=== PATIENT | male | born 1955 | race Caucasian/White ===

== ENCOUNTER 2019-07-22 04:31 | Inpatient (IN) ==
[2019-07-22] MEDS ORDERED: NITROGLYCERIN SL 0.4 MG/TAB TAB ONE (04:46)
[2019-07-22] MEDS ORDERED: ASPIRIN CHEW 324 MG ONE (04:47)
[2019-07-22] MEDS ORDERED: SODIUM CHLORIDE 0.9% 1000ML 1,000 ML IV ONE (04:47)
[2019-07-22] MEDS ORDERED: ASPIRIN 81 MG CHEW PO STA (04:47)
[2019-07-22] MEDS: NITROGLYCERIN SL 0.4 MG/TAB TAB SL PRN ×3 (04:50→05:00)
[2019-07-22 05:01] LABS: Basophils # (auto) 0.02 K/uL (0-0.2); Basophils % (auto) 0.3 %; Eosinophils # (auto) 0.07 K/uL (0-0.5); Eosinophils % (auto) 0.9 %; Hematocrit (blood only) 45.2 % (42-52); Hemoglobin 15.8 g/dL (14.0-18.0); Immature Granulocytes # (auto) 0.01 K/uL (0.00-0.02); Immature Granulocytes % (auto) 0.1 %; Lymphocytes # (auto) 2.34 K/uL (1.2-3.4); Mean Corpuscular Hemoglobin 29.3 pg (25-34); Mean Corpuscular Volume 83.9 fL (80-100); Mean Platelet Volume 10.3 fL (7.4-10.4); Monocytes # (auto) 0.47 K/uL (0.11-0.59); Monocytes % (auto) 6.2 %; Neutrophils # (auto) 4.63 K/uL (1.4-6.5); Neutrophils % (auto) 61.5 %; Platelet Count 160 K/uL (130-400); RDW Coefficient of Variation 14.2 % (11.5-14.5); RDW Standard Deviation 43.9 fL (36.4-46.3); Red Blood Count 5.39 M/uL (4.7-6.1); White Blood Count 7.54 K/uL (4.8-10.8)
[2019-07-22 05:06] LABS: iSTAT Creatinine 0.7 mg/dl (0.6-1.3); iSTAT Ionized Calcium 1.36 mmol/l (1.12-1.32)
[2019-07-22] MEDS ORDERED: fentaNYL citrate 100 MCG/2 ML VIAL IV STA (05:10)
[2019-07-22] MEDS ORDERED: NiCARDipine HCL INJ 2.5 MG/ML 10 ML AMP ONE (05:12)
[2019-07-22] MEDS ORDERED: HEPARIN (PORCINE) 1000 UNIT/ML 10 ML (CATH LAB USE ONLY) ONE (05:12)
[2019-07-22 05:13] LABS: INR 1.1 (0.9-1.1); Partial Thromboplastin Time 25.9 Seconds (21.0-31.0); Prothrombin Time 10.9 Seconds (9.0-12.0)
[2019-07-22] MEDS ORDERED: MIDAZOLAM HCL 1 MG/ML 2ML VIAL ONE (05:13)
[2019-07-22] MEDS ORDERED: fentaNYL citrate 100 MCG/2 ML VIAL ONE (05:13)
[2019-07-22] MEDS ORDERED: NITROGLYCERIN/D5W 100MCG/ML 20ML SYR ONE (05:14)
[2019-07-22 05:21] LABS: Alanine Aminotransferase 29 U/L (12-78); Aspartate Aminotransferase 28 U/L (15-37); BUN Creatinine Ratio 15.5 (10-20); Bilirubin Direct < 0.1 mg/dl (0-0.2); Blood Urea Nitrogen 13 mg/dl (7-18); Carbon Dioxide 24 mmol/L (21-32); Chloride 106 mmol/L (98-107); Creatinine Clr Calc Pharmacy 91.2 ml/min; Est GFR (Non-African American) 93.2; Glucose 94 mg/dl (70-99); Lipase 239 U/L (73-393); Potassium 3.8 mmol/L (3.5-5.1); Sodium 135 mmol/L (136-145)
[2019-07-22 05:27] LABS: Alkaline Phosphatase 95 U/L (45-117); Bilirubin,Total 0.4 mg/dl (0.2-1); Total Protein 8.6 gm/dl (6.4-8.2); Troponin I < 0.015 ng/ml (0-0.045)
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
--- NOTE | 2019-07-22 06:21 | Pre Anesthesia Assessment ---
Date of Service July 22, 2019 Pre Sedation Assessment Vital Signs Temp Pulse Pulse Resp BP BP Pulse Ox 07/22/19 05:08 74 20 138/73 95 07/22/19 05:01 79 20 139/85 95 07/22/19 04:58 82 20 139/85 96 07/22/19 04:55 87 20 170/106 H 98 07/22/19 04:36 98.2 F 80 20 183/98 H 98 Cardiovascular RRR, no murmur, no edema Respiratory normal respiratory effort, lungs clear to auscultation Pre-Sedation Airway Assessment Smoking Status: Never smoker Hx Sleep Apnea: No Hx Difficult Intubation: No Short, Thick Neck: No Thyromental Distance: > or= 3.5 Finger Breadths Oral Cavity: + WNL Mallampati Class: III ASA: ASA3 Procedure Planning Contraindications for Sedation: none Current Medications Reviewed: Yes Notes The planned sedation has been discussed with the patient. Informed Consent was obtained. I have identified the patient, determined the appropriateness of sedation and have assessed the patient immediately prior to the procedure. All medicine(s) and interventions are by my order.
--- NOTE | 2019-07-22 06:21 | Post Anesthesia Assessment ---
Date of Service July 22, 2019 Post Sedation Assessment Vital Signs Temp Pulse Pulse Resp BP BP Pulse Ox 07/22/19 05:08 74 20 138/73 95 07/22/19 05:01 79 20 139/85 95 07/22/19 04:58 82 20 139/85 96 07/22/19 04:55 87 20 170/106 H 98 07/22/19 04:36 98.2 F 80 20 183/98 H 98 Recovery Score Activity: Moves 4 extremities Respiration: Deep Breath/Cough Circulation: +/-20% PreAnes Value Consciousness: Fully Awake Oxygen Saturation: O2 needed for >90% Discharge Sedation Level of Care: Fast Track Phase II Post Sedation Plan On clinical assessment, the patient appears to have tolerated the sedation without complications. Patient is recovering as anticipated. Patient will continue to be monitored by nursing and may be discharged when sedation discharge criteria are met per below protocol. Upon Completions of procedure and additional 15 minutes continue every 5 minute vital signs and the P.A.R. score; then discharge to a Phase I or Fast Track to Phase II per the following guidelines: * Discharge Patient to appropriate Phase II area if PAR is 8 or greater or return to pre- procedure baseline. The post - procedure orders will be as directed. * If PAR score is less than 8 or not return to pre-procedure baseline then patient will follow Phase I monitoring till PAR is reached for Phase II. The Phase I may be done in procedure room or may call to secure a Phase I area. * If naloxone or flumazenil are used for reversal, hold in Phase I for continued monitoring from when last reversal dose was given for a minimum of 60 minutes or longer pending the nurse and/or physician discretion of patient condition before discharge to Phase II. Please call the Sedation Physician to re-evaluate and complete post-note for discharge to Phase II area. Do NOT discharge from procedure sedation or Phase 1 until post- sedation evaluation note is complete by procedure /sedation MD Sedation Discharge Instructions to be given to the patient at discharge to home.
[2019-07-22] MEDS ORDERED: ONDANSETRON INJ 2 MG/ML 2 ML VIAL IV PRN (06:23)
[2019-07-22] MEDS ORDERED: Heparin IV Low Dose *NO* Bolus IV ONE (06:23)
--- NOTE | 2019-07-22 06:23 | XRay Report ---
XR chest 1V portable CLINICAL HISTORY: CP dyspnea COMPARISON STUDY: No previous studies for comparison. FINDINGS: The bones soft tissues and hemidiaphragms are normal. The cardiomediastinal silhouette is n ormal. The lungs are clear. The pulmonary vasculature is normal. IMPRESSION: Negative chest. The above report was generated using voice recognition software. It may contain grammatical, syntax or spelling errors. Electronically signed by: Kirk Mo M.D. 07/22/2019 6:21 AM
--- NOTE | 2019-07-22 06:23 | Post Operative Brief Note ---
Cardiology Brief Post Op Date of Surgery July 22, 2019 Pre & Post Diagnosis Operation Date: 07/22/19 05:05 <No data on this case meets the specified criteria> Procedure -- Wool Fleece Grader Manuel Loera MD Urology Nurse [facility] Estimated Blood Loss 10 Findings Consistent with Post-Op Diagnosis Multivessel CAD 70-80% ostial/proximal LAD disease 95% ostial OM2 70% PDA Recommend evaluation for CABG. Complications none
[2019-07-22] MEDS ORDERED: HEPARIN 25000 UNIT/500 ML D5W IV ONE (06:45)
[2019-07-22] MEDS: HEPARIN SODIUM/DEXTROSE 25,000 UNITS/500 ML BAG IV SCH (07:32)
[2019-07-22] MEDS: SODIUM CHLORIDE 0.9% 1000ML 1,000 ML IV SCH ×3 (07:37→23:57)
--- NOTE | 2019-07-22 09:26 | Cardiac Catheterization ---
[facility] Data: Principal Clerk Cardiac Status Clinical evaluation leading to the procedure CAD Presenation: Non STEMI Anginal Classification: CCS IV Heart Failure: No Cardiogenic Shock within 24 Hours: No Cardiac Arrest within 24 Hours: No Imaging Studies Past 6 Months: No Stress Studies Past 6 Months: No Diagnostic Physicians Name: Manuel Loera MD Status: Urgent Closure Device Percutaneous Entry Location: Radial Closure Device: Radial Band Recommendations: CABG Intraprocedure Events Significant Disection: No Perforation: No Cardiac Cath Procedure Full Procedure Date July 22, 2019 Pre-Procedure Diagnosis Pre-Procedure Diagnosis: Acute Coronary Syndrome AUC Score AUC Score: 8 Post-Procedure Diagnosis Post-Procedure Diagnosis: Severe CAD and Normal Intracardiac Pressures Procedure(s) Performed Procedure(s) Performed: Coronary Angiography, Left Heart Cath and IVUS Word Processing Specialist Manuel Loera MD Rejogger(s) Monisha Estimated Blood Loss Estimated Blood Loss: 15 Medication(s) Medication(s): Fentanyl, Heparin, Lidocaine 1%, Nicardipine, Nitroglycerin and Versed Summary of Findings Indication: ACS Access: 6 Fr right radial artery Catheters: Brandon, pigtail, EBU 3.5 Findings: LM -Short vessel, 20% distal LAD -70-80% ostial stenosis, 30% proximal to mid disease extending across across first septal. Remainder of mid/distal vessel without significant disease as w raps around apex. Circumflex -moderate caliber, proximal luminal irregularities, OM 2 with 95% ostial stenosis (likely culprit). Distal circumflex with 50% stenosis prior to left PLB RCA -dominant, moderate caliber, diffuse 30 to 40% latemid to distal RCA. 70% proximal right PDA. LVEDP - 16 LVEF -- 55-60% IVUS assessment of ostial LAD -LM cannulated with EBU 3.5 guide -BMW wire placed in circumflex, Whisper wire placed into distal LAD -IVUS pullback from mid LAD across left main. Severe, mildly calcified plaque extending across take-off diagonal back to LAD ostium. Arterial Closure: TR Band Summary: 1. Severe multivessel coronary artery disease - 70-80% ostial LAD - 95% proximal OM2 (likely acute culprit) - 70% proximal R-PDA 2. Normal intracardiac filling pressure Recommendations: With 3 vessel disease including involvement of ostial LAD recommend consideration of CABG. Recommendations Recommendations: CABG Specimens Specimens: None Anesthesia moderate Procedural Complication(s) None Disposition PCU I attest to the content of the Intraoperative Record and any orders documented therein. Any exceptions are noted below.
[2019-07-22] MEDS: ATORVASTATIN 40 MG TAB PO SCH (10:50)
[2019-07-22] MEDS: METOPROLOL TARTRATE 25 MG TAB PO SCH ×2 (10:51→20:38)
[2019-07-22 14:23] LABS: Partial Thromboplastin Time 54.2 Seconds (21.0-31.0)
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
[2019-07-22] MEDS: ACETAMINOPHEN 325 MG TAB PO PRN (22:33)
[2019-07-23 06:19] LABS: Basophils # (auto) 0.02 K/uL (0-0.2); Basophils % (auto) 0.4 %; Eosinophils # (auto) 0.15 K/uL (0-0.5); Eosinophils % (auto) 2.9 %; Hematocrit (blood only) 43.8 % (42-52); Hemoglobin 14.6 g/dL (14.0-18.0); Immature Granulocytes # (auto) 0.01 K/uL (0.00-0.02); Immature Granulocytes % (auto) 0.2 %; Lymphocytes # (auto) 2.26 K/uL (1.2-3.4); Lymphocytes % (auto) 43.2 %; Mean Corpuscular Hemoglobin 28.2 pg (25-34); Mean Corpuscular Hgb Conc 33.3 g/dL (32-36); Mean Corpuscular Volume 84.7 fL (80-100); Mean Platelet Volume 10.4 fL (7.4-10.4); Monocytes # (auto) 0.33 K/uL (0.11-0.59); Monocytes % (auto) 6.3 %; Neutrophils # (auto) 2.46 K/uL (1.4-6.5); Platelet Count 124 K/uL (130-400); RDW Coefficient of Variation 14.1 % (11.5-14.5); RDW Standard Deviation 43.7 fL (36.4-46.3); Red Blood Count 5.17 M/uL (4.7-6.1); White Blood Count 5.23 K/uL (4.8-10.8)
[2019-07-23 06:42] LABS: Estimated Average Glucose 111 mg/dl; Hemoglobin A1C 5.5 % (4.5-5.6)
[2019-07-23 06:46] LABS: Partial Thromboplastin Ratio 1.7
[2019-07-23 06:58] LABS: BUN Creatinine Ratio 14.9 (10-20); Creatinine Clr Calc Pharmacy 97.5 ml/min; Est GFR (African American) 113.2; Est GFR (Non-African American) 97.6; Potassium 3.7 mmol/L (3.5-5.1)
[2019-07-23 07:00] LABS: Partial Thromboplastin Time 46.4 Seconds (21.0-31.0)
[2019-07-23 07:07] LABS: Troponin I 0.127 ng/ml (0-0.045)
[2019-07-23] MEDS: ASPIRIN 81 MG ECTAB PO SCH (08:03)
[2019-07-23] MEDS: METOPROLOL TARTRATE 25 MG TAB PO SCH ×2 (08:03→20:25)
[2019-07-23] MEDS: ATORVASTATIN 40 MG TAB PO SCH (08:03)
[2019-07-23] MEDS: SODIUM CHLORIDE 0.9% 1000ML 1,000 ML IV SCH (10:09)
[2019-07-23] MEDS: HEPARIN SODIUM/DEXTROSE 25,000 UNITS/500 ML BAG IV SCH (11:19)
[2019-07-23] MEDS ORDERED: NiCARDipine HCL INJ 2.5 MG/ML 10 ML AMP ONE (15:10)
[2019-07-23] MEDS ORDERED: HEPARIN (PORCINE) 1000 UNIT/ML 10 ML (CATH LAB USE ONLY) ONE (15:10)
[2019-07-23] MEDS ORDERED: MIDAZOLAM HCL 1 MG/ML 2ML VIAL ONE (15:11)
[2019-07-23] MEDS ORDERED: NITROGLYCERIN/D5W 100MCG/ML 20ML SYR ONE (15:11)
[2019-07-23] MEDS ORDERED: fentaNYL citrate 100 MCG/2 ML VIAL ONE (15:11)
--- NOTE | 2019-07-23 16:54 | Cardiology Progress Note ---
Date of Service July 23, 2019 Assessment & Plan (1) Acute coronary syndrome: 2. Multivessel coronary artery disease 3. Preserved LV function 4. History of hepatitis C. We reviewed images today. Long discussion with patient and his son by phone. Feel LAD and OM 2 both amenable to PCI and that long-term risk benefits of bypass surgery are comparable. After discussions patient would like to proceed with PCI and will plan to schedule for tomorrow morning. We will discontinue heparin infusion Load with clopidogrel 600 mg today Continue aspirin, beta-patricia, statin. --Start lisinopril N.p.o. past midnight. Subjective Feeling well today. No recurrent chest pain. No shortness of breath. Urinary concerns have resolved. One brief episode of nausea resolved. Review of Systems Review of Systems: All systems reviewed & are unremarkable except as noted in HPI & below Physical Exam Physical Exam: General: Comfortable, no acute distress HEENT: Sclerae anicteric, mucous membranes moist Lungs: Clear to auscultation bilaterally, no rhonchi or wheezes Cardiac: Regular rate and rhythm, no murmurs. Abdomen: Soft, nontender, nondistended, positive bowel sounds. Extremities: Warm, well perfused, no edema. Right radial artery access site with mild ecchymosis, no hematoma. Distal pulse and sensation intact. Skin: No rashes or lesions. Neuro: Nonfocal Psych: Alert orient x3, normal affect and mood Results & Data Vital Signs (Past 12 Hours) Vital Signs Temp Pulse Pulse Resp BP BP Pulse Ox 07/23/19 16:46 97.7 F 61 19 157/68 H 97 07/23/19 15:36 65 07/23/19 11:38 98.1 F 66 24 144/88 H 95 07/23/19 08:03 97.7 F 67 18 126/67 95 07/23/19 08:00 62 PG Care Time/CCT Total # of Minutes Spent Total Time Spent with Patient: Total time spent is greater than 50% in coordination of care (as documented) at patient's floor/unit and/or counseling patient:
[2019-07-23] MEDS ORDERED: CLOPIDOGREL BISULFATE 300 MG TAB PO STA (17:04)
[2019-07-23] MEDS: lisinopriL 5 MG TAB PO SCH (17:38)
[2019-07-24 06:50] LABS: Partial Thromboplastin Time 26.5 Seconds (21.0-31.0)
[2019-07-24] MEDS: ATORVASTATIN 40 MG TAB PO SCH (07:47)
[2019-07-24] MEDS: METOPROLOL TARTRATE 25 MG TAB PO SCH ×2 (07:48→21:18)
[2019-07-24] MEDS: lisinopriL 5 MG TAB PO SCH (07:48)
[2019-07-24] MEDS: ASPIRIN 81 MG ECTAB PO SCH (07:48)
[2019-07-24] MEDS: CLOPIDOGREL BISULFATE 75 MG TAB PO SCH (07:49)
[2019-07-24] MEDS ORDERED: fentaNYL citrate 100 MCG/2 ML VIAL ONE ×2 (09:23→10:07)
[2019-07-24] MEDS ORDERED: NiCARDipine HCL INJ 2.5 MG/ML 10 ML AMP ONE (09:23)
[2019-07-24] MEDS ORDERED: HEPARIN (PORCINE) 1000 UNIT/ML 10 ML (CATH LAB USE ONLY) ONE (09:23)
[2019-07-24] MEDS ORDERED: MIDAZOLAM HCL 1 MG/ML 2ML VIAL ONE ×2 (09:24→10:07)
[2019-07-24] MEDS ORDERED: NITROGLYCERIN/D5W 100MCG/ML 20ML SYR ONE (09:24)
--- NOTE | 2019-07-24 11:17 | Pre Anesthesia Assessment ---
Date of Service July 24, 2019 Pre Sedation Assessment Vital Signs Temp Pulse Pulse Resp BP BP Pulse Ox 07/24/19 08:00 58 L 07/24/19 07:19 98.1 F 63 21 135/79 96 07/24/19 04:25 97.9 F 57 L 20 144/72 H 97 07/23/19 23:48 97.7 F 55 L 20 144/79 H 98 07/23/19 19:36 97.9 F 68 21 128/75 97 07/23/19 16:46 97.7 F 61 19 157/68 H 97 07/23/19 15:36 65 07/23/19 11:38 98.1 F 66 24 144/88 H 95 Cardiovascular RRR, no murmur, no edema Respiratory normal respiratory effort, lungs clear to auscultation Pre-Sedation Airway Assessment Smoking Status: Never smoker Hx Sleep Apnea: No Hx Difficult Intubation: No Short, Thick Neck: No Thyromental Distance: > or= 3.5 Finger Breadths Oral Cavity: + WNL Mallampati Class: III ASA: ASA4 Procedure Planning Contraindications for Sedation: none Current Medications Reviewed: Yes Notes The planned sedation has been discussed with the patient. Informed Consent was obtained. I have identified the patient, determined the appropriateness of se dation and have assessed the patient immediately prior to the procedure. All medicine(s) and interventions are by my order.
--- NOTE | 2019-07-24 11:17 | Post Anesthesia Assessment ---
Date of Service July 24, 2019 Post Sedation Assessment Vital Signs Temp Pulse Pulse Resp BP BP Pulse Ox 07/24/19 08:00 58 L 07/24/19 07:19 98.1 F 63 21 135/79 96 07/24/19 04:25 97.9 F 57 L 20 144/72 H 97 07/23/19 23:48 97.7 F 55 L 20 144/79 H 98 07/23/19 19:36 97.9 F 68 21 128/75 97 07/23/19 16:46 97.7 F 61 19 157/68 H 97 07/23/19 15:36 65 07/23/19 11:38 98.1 F 66 24 144/88 H 95 Recovery Score Activity: Moves 4 extremities Respiration: Deep Breath/Cough Circulation: +/-20% PreAnes Value Consciousness: Fully Awake Oxygen Saturation: O2 needed for >90% Discharge Sedation Level of Care: Fast Track Phase II Post Sedation Plan On clinical assessment, the patient appears to have tolerated the sedation without complications. Patient is recovering as anticipated. Patient will continue to be monitored by nursing and may be discharged when sedation discharge criteria are met per below protocol. Upon Completions of procedure and additional 15 minutes continue every 5 minute vital signs and the P.A.R. score; then discharge to a Phase I or Fast Track to Phase II per the following guidelines: * Discharge Patient to appropriate Phase II area if PAR is 8 or greater or return to pre- procedure baseline. The post - procedure orders will be as directed. * If PAR score is less than 8 or not return to pre-procedure baseline then patie nt will follow Phase I monitoring till PAR is reached for Phase II. The Phase I may be done in procedure room or may call to secure a Phase I area. * If naloxone or flumazenil are used for reversal, hold in Phase I for continued monitoring from when last reversal dose was given for a minimum of 60 minutes or longer pending the nurse and/or physician discretion of patient condition before discharge to Phase II. Please call the Sedation Physician to re-evaluate and complete post-note for discharge to Phase II area. Do NOT discharge from procedure sedation or Phase 1 until post- sedation ev aluation note is complete by procedure /sedation MD Sedation Discharge Instructions to be given to the patient at discharge to home.
[2019-07-24] MEDS ORDERED: SODIUM CHLORIDE 0.9% 1000ML 1,000 ML IV SCH (11:30)
--- NOTE | 2019-07-24 11:30 | Cardiac Catheterization ---
ACC Data: Retirement Manager Cardiac Status Clinical evaluation leading to the procedure CAD Presenation: Non STEMI Anginal Classification: CCS IV Heart Failure: No Cardiogenic Shock within 24 Hours: No Cardiac Arrest within 24 Hours: No Imaging Studies Past 6 Months: Yes Stress Studies Past 6 Months: No Diagnostic Physicians Name: Manuel Loera MD Status: Elective Closure Device Percutaneous Entry Location: Radial Closure Device: Radial Band Recommendations: PCI without planned CABG PCI Indication: PCI for high risk Non-ASHER Lesion Segment Name: ostial LAD Culprit Artery: No Stenosis Prior to Rx (%): 80 Chronic Total Occlusion: No IVUS: No FFR: No Pre-Procedure NII Flow: 3 Previously Treated Lesion: No Lesion Complexity: High/C Lesion Length (mm): 23 Thrombus Present: No Bifurcation Lesion: Yes Guidewire Across Lesion: Stenosis Post-Procedure (%): 0 Post-Procedure NII Flow: 3 Devices(s) Deployed: Yes Yes Lesion #2 Segment Name: OM2 Culprit Artery: Yes Stenosis Prior to Rx (%): 95 Chronic Total Occlusion: No IVUS: No FFR: No Pre-Procedure NII Flow: 3 Previously Treated Lesion: No Lesion Complexity: Non-High/Non-C Lesion Length (mm): 15 Thrombus Present: Yes Bifurcation Lesion: Yes Guidewire Across Lesion: Yes Stenosis Post-Procedure (%): 0 Post-Procedure NII Flow: 3 Devices(s) Deployed: Yes Intraprocedure Events Significant Disection: No Perforation: No Cardiac Cath Procedure Full Procedure Date July 24, 2019 Pre-Procedure Diagnosis Pre-Procedure Diagnosis: Non STEMI AUC Score AUC Score: 8 Post-Procedure Diagnosis Post-Procedure Diagnosis: Severe CAD and Successful PCI Procedure(s) Performed Procedure(s) Performed: Left Heart Cath, PTCA and Drug Eluting Stent Gynaecological Oncologist Manuel Loera MD Blow Torch Burner(s) Yaquelin Estimated Blood Loss Estimated Blood Loss: 15 Medication(s) Medication(s): Clopidogrel, Fentanyl, Heparin, Lidocaine 1%, Nicardipine, Nitroglycerin and Versed Summary of Findings Indication: NSTEMI, multivessel disease Underwent cardiac catheterization in the setting of acute chest pain 2 days ago. He was found to have multivessel disease including ostial LAD involvement. Procedure stopped at that time for discussion regarding revascularization options for multivessel disease. Patient ultimately decided to pursue PCI with multivessel stenting. Access: 6 Fr right radial artery Catheters: EBU 3.5 guide Findings: For full details of patient's coronary angiography please cath report dictated on 07/22/2019. PCI of OM 2 Left main cannulated with EBU 3.5 guide Supervisor Remelt 50 wire placed into distal OM 2 Ostial OM 2 dilated with 2.0 balloon Ostial/proximal OM 2 stented with 2.5 x 18 mm Xience drug-eluting stent Stent postdilated with 2.5 NC Post procedure NII-3 flow in OM 2, stent well-expanded. Mild to moderate residuals stenosis in mid circumflex after takeoff of stent. PCI of ostial LAD BMW wire placed into distal LAD Pro-water placed into first diagonal Proximal LAD dilated with 2.5 compliant balloon Prior IVUS assessment during last catheterization showed disease extending from ostium to mid segment across first diagonal 3.0 x 28 mm Xience Hilaria drug-eluting stent placed from LAD ostium to mid segment Diagonal rewired with river pilot 50 wire LAD stent postdilated with 3.75 NC Ostium of first diagonal/stent struts dilated with 2.0 balloon Post procedure stent well-expanded, NII-3 flow in LAD and first diagonal. No apparent coronary complications. Arterial Closure: TR Band Summary: 1. Successful PCI of ostial LAD with single drug-eluting stent (3.0 x 28 Xience Hilaria; postdilated with 3.75 NC). Successful PTCA of ostium of first diagonal through stent struts with 2.0 balloon 2. Successful PCI of proximal OM 2 with single drug-eluting stent (2.5 x 18 Xience Hilaria). Recommendations: Return to PCU for continued monitoring Loaded with clopidogrel yesterday. Continue DAPT with aspirin, clopidogrel for at least one year Continue statin and ASCVD risk factor modification Refer to cardiac rehab No plans for intervention to RCA disease or distal circumflex disease unless additional symptoms in the future. Hemodynamics Rest Ao:: 97/61/76 Final Ao: 110/59/92 LV: -- Recommendations Recommendations: PCI without planned CABG Radiation Exposure (mGy) 3298 Contrast (mls) 150 opti Fluids (cc crystalloids) Fluids (cc crystalloids): 165 Drains Drains: none Anesthesia moderate Procedural Complication(s) None Disposition PCU I attest to the content of the Intraoperative Record and any orders documented therein. Any exceptions are noted below.
[2019-07-24] MEDS: ACETAMINOPHEN 325 MG TAB PO PRN (14:33)
[2019-07-25] MEDS: ACETAMINOPHEN 325 MG TAB PO PRN ×2 (03:33→08:00)
[2019-07-25 06:45] LABS: Basophils # (auto) 0.02 K/uL (0-0.2); Basophils % (auto) 0.2 %; Eosinophils # (auto) 0.19 K/uL (0-0.5); Eosinophils % (auto) 2.4 %; Hematocrit (blood only) 43.1 % (42-52); Immature Granulocytes # (auto) 0.01 K/uL (0.00-0.02); Immature Granulocytes % (auto) 0.1 %; Lymphocytes # (auto) 2.41 K/uL (1.2-3.4); Lymphocytes % (auto) 29.8 %; Mean Corpuscular Hgb Conc 34.8 g/dL (32-36); Mean Corpuscular Volume 83.2 fL (80-100); Mean Platelet Volume 10.7 fL (7.4-10.4); Monocytes # (auto) 0.57 K/uL (0.11-0.59); Monocytes % (auto) 7.1 %; Neutrophils # (auto) 4.88 K/uL (1.4-6.5); Neutrophils % (auto) 60.4 %; Platelet Count 157 K/uL (130-400); RDW Coefficient of Variation 14.5 % (11.5-14.5); RDW Standard Deviation 44.4 fL (36.4-46.3); Red Blood Count 5.18 M/uL (4.7-6.1); White Blood Count 8.08 K/uL (4.8-10.8)
[2019-07-25] MEDS: CLOPIDOGREL BISULFATE 75 MG TAB PO SCH (08:01)
[2019-07-25] MEDS: lisinopriL 5 MG TAB PO SCH (08:01)
[2019-07-25] MEDS: ATORVASTATIN 40 MG TAB PO SCH (08:01)
[2019-07-25] MEDS: ASPIRIN 81 MG ECTAB PO SCH (08:01)
[2019-07-25] MEDS: METOPROLOL TARTRATE 25 MG TAB PO SCH (08:01)
--- NOTE | 2019-07-25 09:11 | Discharge Summary ---
Date of Service July 25, 2019 Admission HPI Per Admitting Provider Patient is a 64-year-old man with a history of hepatitis C who presented to [facility] ED with acute onset chest pain. Pain began approximately 3 hours prior to arrival. No prior similar symptoms. No associated shortness of breath or nausea. Pain did radiate to back. ED EKG showed sinus rhythm with a right bundle branch block. Computer interpretation suggested inferolateral STEMI and heart alert was activated. Patient was largely chest pain-free after sublingual nitroglycerin when seen by me in the ED. Decision was made to proceed with cardiac catheterization. He was found to have multivessel disease including a 70 to 80% ostial LAD, 70% proximal PDA and 95% proximal OM 2 lesion which was thought to be the likely acute culprit vessel. Patient had NII-3 flow throughout and was chest pain-free in the setting of three-vessel disease with ostial LAD involvement decision made to defer intervention and discussed options for revascularization. Past medical history: Hepatitis C. Medications: None Social history: Originally from [place], non-yakut speaking, speaks Svitlana, son present and translating for patient today. Works at a [employer]. Denies tobacco or heavy alcohol. Family history: Denies premature CAD Allergies: None Specialty Data Cardiology Echo 07/2019: Borderline LVH, EF 60 to 65%, no regional wall motion abno rmalities, aortic sclerosis PCI 07/24/2019: 1. Successful PCI of ostial LAD with single drug-eluting stent (3.0 x 28 Xience Hilaria; postdilated with 3.75 NC). Successful PTCA of ostium of first diagonal through stent struts with 2.0 balloon 2. Successful PCI of proximal OM 2 with single drug-eluting stent (2.5 x 18 Xience Hilaria). Discharge Data Consultations 07/22/19 05:22 ED Decision to Admit Stat 07/24/19 11:32 Consult Cardiac Rehabilitation Routine Procedures Performed Operation Date: 07/22/19 05:05 Actual Procedures p Cath, Left with Cors and Vent - Kyle Loera MD s Cineradiography w/Routine Exam - Kyle Loera MD s IVUS Coronary Single Vessel - Kyle Loera MD Operation Date: 07/23/19 14:55 <No data on this case meets the specified criteria> Operation Date: 07/24/19 12:00 Actual Procedures p Drug Eluting Stent SGl Vessel - Kyle Loera MD s Drug Eluting Stent each ADDTL Vessel - Kyle Loera MD s Cineradiography w/Routine Exam - Kyle Loera MD s POBA SGL Vessel - Kyle Loera MD Hospital Course (1) Acute coronary syndrome: 2. Multivessel coronary artery disease 3. Preserved LV function 4. History of hepatitis C. Patient remained largely chest pain-free throughout the remainder of his hospitalization. Troponin peaked at 0.151. Echo cardiogram showed preserved LV function with no regional wall motion and normalities. Long discussion was had regarding revascularization options. In the end we decided to proceed with multivessel PCI. On 07/24 underwent stenting of ostial LAD and ostial OM 2. Procedure uncomplicated. On day of discharge patient was feeling well and chest pain-free. No access site complications. Post procedure follow-up labs unchanged. Discharged home on DAPT with aspirin, clopidogrel. Follow-up with cardiology in 2 to 3 weeks. Discharge Instructions Home Medications aspirin [Ecotrin Low Strength] 81 mg PO QAM 30 Days #30 tab 07/25/19 [Rx] atorvastatin 80 mg PO QAM 30 Days #30 tab 07/25/19 [Rx] clopidogrel 75 mg PO QAM 30 Days #30 tab 07/25/19 [Rx] lisinopril [Zestril] 5 mg PO QAM 30 Days #30 tab 07/25/19 [Rx] metoprolol tartrate 25 mg PO DAILY 30 Days #30 tab 07/25/19 [Rx]
== END 2019-07-25 13:02 | disposition home or self-care (01) | DRG 247 ==
LOC: ED 04:31 → 2E 06:25

== ENCOUNTER 2019-09-21 18:26 | Inpatient (IN) ==
[2019-09-21] MEDS ORDERED: ONDANSETRON INJ 2 MG/ML 2 ML VIAL IV STA (18:46)
[2019-09-21] MEDS ORDERED: MoRPHine SULFATE 4 MG/ML 1 ML CARP\\VIAL IV STA (18:46)
[2019-09-21] MEDS ORDERED: SODIUM CHLORIDE 0.9% 1000ML 1,000 ML IV SCH (19:00)
[2019-09-21 19:08] LABS: Basophils # (auto) 0.01 K/uL (0-0.2); Basophils % (auto) 0.1 %; Eosinophils # (auto) 0.08 K/uL (0-0.5); Eosinophils % (auto) 0.9 %; Hematocrit (blood only) 45.9 % (42-52); Hemoglobin 15.5 g/dL (14.0-18.0); Immature Granulocytes # (auto) 0.01 K/uL (0.00-0.02); Immature Granulocytes % (auto) 0.1 %; Lymphocytes # (auto) 1.12 K/uL (1.2-3.4); Mean Corpuscular Hemoglobin 28.8 pg (25-34); Mean Corpuscular Hgb Conc 33.8 g/dL (32-36); Mean Corpuscular Volume 85.3 fL (80-100); Mean Platelet Volume 10.5 fL (7.4-10.4); Monocytes # (auto) 0.46 K/uL (0.11-0.59); Monocytes % (auto) 4.9 %; Neutrophils # (auto) 7.63 K/uL (1.4-6.5); Platelet Count 158 K/uL (130-400); RDW Coefficient of Variation 14.1 % (11.5-14.5); RDW Standard Deviation 43.5 fL (36.4-46.3); Red Blood Count 5.38 M/uL (4.7-6.1); White Blood Count 9.31 K/uL (4.8-10.8)
[2019-09-21 19:17] LABS: iSTAT Creatinine 0.7 mg/dl (0.6-1.3); iSTAT Hemoglobin 16.3 g/dl (14.0-18.0); iSTAT Ionized Calcium 1.27 mmol/l (1.12-1.32); iSTAT Potassium 4.8 mEq/L (3.3-5.0)
[2019-09-21 19:25] LABS: Alanine Aminotransferase 42 U/L (12-78); Albumin Level 3.7 gm/dl (3.4-5.0); Aspartate Aminotransferase 33 U/L (15-37); BUN Creatinine Ratio 15.1 (10-20); Blood Urea Nitrogen 14 mg/dl (7-18); Calcium 10.2 mg/dl (8.5-10.1); Carbon Dioxide 25 mmol/L (21-32); Chloride 101 mmol/L (98-107); Est GFR (African American) 103.6; Est GFR (Non-African American) 89.4; Glucose 151 mg/dl (70-99); Lipase 307 U/L (73-393); Potassium 4.8 mmol/L (3.5-5.1); Sodium 131 mmol/L (136-145)
[2019-09-21 19:29] LABS: Albumin Globulin Ratio 0.8 (0.9-2); Alkaline Phosphatase 126 U/L (45-117); Bilirubin,Total 0.4 mg/dl (0.2-1); Globulin 4.5 gm/dl (2.5-4.0); Total Protein 8.2 gm/dl (6.4-8.2); Troponin I < 0.015 ng/ml (0-0.045)
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
[2019-09-21] MEDS ORDERED: IOVERSOL 100ml IV PRN (19:33)
--- NOTE | 2019-09-21 19:51 | CT Scan Report ---
CT OF THE ABDOMEN AND PELVIS WITH CONTRAST CLINICAL HISTORY: Lower abdominal pain. COMPARISON STUDY: None. TECHNIQUE: Following IV administration of 93 mL of Optiray-320, axial images of the abdomen and pelvi s were obtained from the lung bases to the proximal femurs. Images were reviewed in the axial, sagitt al, and coronal planes. IV contrast was administered without complication. Automated exposure contro l was utilized for the study. A dose lowering technique was utilized adhering to the principles of A MARLENE. CT DOSE: 422.43 mGy.cm FINDINGS: There is extensive coronary artery calcification. Heart is mildly enlarged. The liver, sple en, adrenal glands, kidneys and pancreas are unremarkable. There is no biliary or pancreatic ductal d ilatation. There is no peripancreatic or pericholecystic infiltration. No hydronephrosis is present. Major vasculature is patent. There is no evidence for a bowel obstruction. The appendix is mildly dil ated, measuring 9 mm in caliber. The appendix is fluid-filled. Minimal adjacent infiltration is noted . There is no free air or abscess. There is edema versus wall thickening of the medial base of the ce cum. No ascites is present. No lymphadenopathy is present. No suspicious osseous lesions are noted. S [place] fat-containing umbilical hernia is present. IMPRESSION: Mildly dilated fluid-filled appendix with minimal adjacent infiltration. The findings rizvi ggest acute appendicitis. Wall thickening of the medial base of the cecum may be secondary to acute a ppendicitis. An underlying mucosal lesion with obstruction of the appendix could appear similar. Surg ical consultation is recommended. ACT 112: Negative or not required by law. Electronically signed by: Saturnino Patterson M.D. 09/21/2019 7:50 PM
[2019-09-21 20:30] LABS: Appearance Urine Cloudy (Clear); Bacteria Urine Automated Negative (Negative); Bilirubin Urine Negative (Negative); Blood Urine Negative (Negative); Color Urine Yellow; Glucose Urine UA Negative (Negative); Ketones Urine Negative (Negative); Leukocyte Esterase Urine Negative (Negative); Nitrite Urine Negative (Negative); Protein Urine Negative (Negative); RBC Urine Automated 0-4 /hpf (0-4); Specific Gravity Urine 1.023 (1.000-1.030); Urobilinogen Urine Negative (Negative)
[2019-09-21] MEDS ORDERED: cefOXitin 2,000 MG/60 ML BAG IV STA (20:59)
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
[2019-09-21] MEDS ORDERED: BUPIVACAINE/EPINEPHRINE 0.5% MPF 1:200,000 10 ML VIAL ONE (21:36)
[2019-09-21] MEDS ORDERED: ePHEDrine sulfate 50 MG/ML AMP IV PRN (21:37)
[2019-09-21] MEDS ORDERED: PROMETHAZINE HCL 6.25 MG in SODIUM CHLORIDE 0.9% 50 ML IV PRN (21:37)
[2019-09-21] MEDS ORDERED: ATROPINE SULFATE 0.1 MG/ML 10ML SYR IV PRN (21:37)
[2019-09-21] MEDS ORDERED: ONDANSETRON INJ 2 MG/ML 2 ML VIAL IV PRN ×2 (21:37→22:37)
[2019-09-21] MEDS ORDERED: fentaNYL citrate 100 MCG/2 ML VIAL IV PRN (21:37)
[2019-09-21] MEDS ORDERED: fentaNYL citrate 100 MCG/2 ML VIAL ONE (21:43)
[2019-09-21] MEDS ORDERED: SUCCINYLCHOLINE CHLORIDE 20 MG/ML 10 ML VIAL ONE (22:13)
[2019-09-21] MEDS ORDERED: PROPOFOL IV EMULSION 10 MG/ML 20 ML VIAL IV ONE (22:13)
[2019-09-21] MEDS ORDERED: LIDOCAINE HCL 2% 2 ML VIAL/AMP(20MG/ML) INFIL ONE (22:13)
[2019-09-21] MEDS ORDERED: DEXAMETHASONE SOD INJ 4 MG/ML VIAL ONE (22:13)
[2019-09-21] MEDS ORDERED: NEOSTIGMINE METHYLSULFATE 5 MG/5 ML SYR ONE (22:13)
[2019-09-21] MEDS ORDERED: ROCURONIUM BROMIDE 10 MG/ML 5 ML VIAL ONE (22:13)
[2019-09-21] MEDS ORDERED: ONDANSETRON INJ 2 MG/ML 2 ML VIAL ONE (22:13)
[2019-09-21] MEDS ORDERED: GLYCOPYRROLATE 0.2 MG/ML VIAL ONE (22:13)
--- NOTE | 2019-09-21 22:26 | Post Operative Brief Note ---
Immediate Post Op Note v1 Date of Surgery September 21, 2019 Pre & Post Diagnosis Operation Date: 09/21/19 21:45 Pre-Op Diagnosis: Appendicitis, acute Post-Op Diagnosis: Appendicitis, acute I identified the patient and participated in the time-out.: Yes Procedure Operation Date: 09/21/19 21:45 Actual Procedures p Laparoscopic Appendectomy(Not Applicable) - Natan Johnson MD Surgeon Natan Johnson MD Confidential Secretary none Estimated Blood Loss 10 Findings Consistent with Post-Op Diagnosis
[2019-09-21] MEDS ORDERED: ESMOLOL HCL INJ 10 MG/ML 10ML VIAL IV ONE (22:32)
[2019-09-21] MEDS ORDERED: SUGAMMADEX SODIUM 200 MG/2 ML VIAL IV ONE (22:34)
[2019-09-21] MEDS ORDERED: ACETAMINOPHEN 325 MG TAB PO PRN (22:37)
[2019-09-21] MEDS ORDERED: PROMETHAZINE HCL 25 MG in SODIUM CHLORIDE 0.9% 50 ML IV PRN (22:37)
[2019-09-21] MEDS ORDERED: POLYETHYLENE (MIRALAX) 17 GM PACK PO PRN (22:37)
[2019-09-21] MEDS ORDERED: ALBUT/IPRATROP 3MG/0.5MG NEB 3 ML VIAL NEB STA (22:53)
--- NOTE | 2019-09-21 22:53 | Anesthesiology Progress Note ---
Date of Service September 21, 2019 Anesthesia Post Procedure Vital Signs Vital Signs: Temp Pulse Pulse Resp BP BP Pulse Ox 09/21/19 21:14 59 L 18 134/84 97 09/21/19 19:45 70 18 161/81 H 97 09/21/19 19:11 100 09/21/19 18:31 36.3 C L 61 20 179/84 H 100 Pain Intensity Abdomen: Pain Intensity: 10 Transfer of Care Handoff Completed per policy Notes Mental Status: alert / awake / arousable Patient Amnestic to Procedure: Yes Nausea / Vomiting: adequately controlled Pain: adequately controlled Airway Patency, RR, SpO2: stable & adequate BP & HR: stable & adequate Hydration State: stable & adequate Anesthetic Complications: no major complications apparent
--- NOTE | 2019-09-21 23:06 | Anesthesiology Progress Note ---
Date of Service September 21, 2019 Anesthesia Post Procedure Vital Signs Vital Signs: Temp Pulse Pulse Resp BP BP Pulse Ox 09/21/19 23:00 82 19 144/89 H 100 09/21/19 22:50 79 23 153/87 H 99 09/21/19 22:44 36.0 C L 80 20 144/86 H 97 09/21/19 21:14 59 L 18 134/84 97 09/21/19 19:45 70 18 161/81 H 97 09/21/19 19:11 100 09/21/19 18:31 36.3 C L 61 20 179/84 H 100 Pain Intensity Abdomen: Pain Intensity: 1 Transfer of Care Handoff Completed per policy Notes Mental Status: alert / awake / arousable Patient Amnestic to Procedure: Yes Nausea / Vomiting: adequately controlled Pain: adequately controlled Airway Patency, RR, SpO2: stable & adequate (1 duoneb tx in pacu. no dyspnea, mild cough at dispo.) BP & HR: stable & adequate Hydration State: stable & adequate Anesthetic Complications: no major complications apparent and Pt Satisfied with anesthetic care
--- NOTE | 2019-09-22 00:04 | Operative Report ---
DATE OF OPERATION: 09/21/2019 PREOPERATIVE DIAGNOSIS: Acute appendicitis. POSTOPERATIVE DIAGNOSIS: Acute appendicitis. PROCEDURE PERFORMED: Laparoscopic appendectomy. SURGEON: Natan Johnson MD COMMUNITY MANAGER: None. ANESTHESIA: General endotracheal with 0.5% Marcaine with epinephrine local. ESTIMATED BLOOD LOSS: 10 mL. DRAINS: None. COMPLICATIONS: None. SPECIMENS: Appendix sent for pathologic evaluation. INDICATIONS FOR PROCEDURE: This is a 64-year-old male who came in with acute abdominal pain, had a CT scan which showed acute appendicitis. His medical history is complicated by a recent stent and he is on Plavix and aspirin. We talked in detail about the risk of bleeding. We will plan on continuing his aspirin and Plavix since his recent stents. We talked about also the risks of open procedure, abscess requiring reoperation or CT-guided drainage, and wound complications. He understands this and wished to proceed. DESCRIPTION OF PROCEDURE: The patient was taken to the OR and underwent excellent general endotracheal anesthesia. His abdomen was prepped and draped in normal sterile fashion. Transverse supraumbilical incision was made and a Veress needle was inserted into the peritoneal cavity with tension placed on the upper abdominal wall. Good pneumoperitoneum was then achieved to 12 mmHg pressure. The patient was placed in head down rolled to the left. A visualized 11 trocar was placed with upward tension on the abdominal wall. A 5 suprapubic and 5 right upper quadrant and 12 left lower quadrant ports were also placed. The right upper quadrant port was used to place a [place] clamp which was used to grasp the cecum. Cecum was placed on tension and the appendix was identified. This was acutely inflamed with edema in the antonio and erythema. Using a Harmonic scalpel with the tip of the appendix on tension, the mesoappendix was taken down without any bleeding. Once the appendix was freed from the mesoappendix, a EM miguel load 60 mm stapler was used to transect the appendix at its base. This was sent into an Endobag and brought out and sent for pathologic evaluation. Once the port in the left lower quadrant was replaced, the abdomen was then irrigated out with a liter of saline. There was a small amount of bleeding. No bleeding could be seen on the staple line, none from where the mesoappendix was taken down. No other abnormalities were noted. The ports were removed. The pneumoperitoneum was decompressed. A 0 Vicryl was used to close the fascial defect at the 12 and 11 ports. A 0.5% Marcaine with epinephrine local was used to create a local field block. Interrupted Vicryl was used to close the skin. Steri-Strips and benzoin were used for this incision. Sterile dressings were applied. The patient tolerated the procedure well with no complications, sent to post-recovery for a period of observation and will be discharged up to his room once he meets criteria. I attest to the content of the Intraoperative Record and any orders documented therein. Any exception s are noted below.
[2019-09-22] MEDS: LACTATED RINGER'S 1,000 ML IV SCH ×2 (00:47→12:36)
[2019-09-22] MEDS: MoRPHine SULFATE 4 MG/ML 1 ML CARP\\VIAL IV PRN ×2 (02:33→08:30)
[2019-09-22] MEDS: cefOXitin 2,000 MG in DEXTROSE 5% 50 ML IV SCH ×2 (05:01→11:38)
--- NOTE | 2019-09-22 08:06 | Anesthesiology Progress Note ---
Date of Service September 22, 2019 Anesthesia Post Procedure Vital Signs Vital Signs: Temp Pulse Pulse Pulse Resp BP BP 09/22/19 07:37 36.3 C L 70 18 89/62 L 09/22/19 02:37 36.4 C L 74 18 127/73 09/22/19 01:47 36.4 C L 75 16 118/66 09/21/19 23:25 63 16 09/21/19 23:20 36 C L 62 16 09/21/19 23:18 87 18 09/21/19 23:10 36 C L 63 16 09/21/19 23:00 82 19 09/21/19 22:50 79 23 09/21/19 22:44 36.0 C L 80 20 09/21/19 21:14 59 L 18 09/21/19 19:45 70 18 09/21/19 19:11 09/21/19 18:31 36.3 C L 61 20 179/84 H BP Pulse Ox 09/22/19 07:37 79/52 L 95 09/22/19 02:37 95 09/22/19 01:47 95 09/21/19 23:25 123/79 97 09/21/19 23:20 123/78 98 09/21/19 23:18 09/21/19 23:10 139/82 99 09/21/19 23:00 144/89 H 100 09/21/19 22:50 153/87 H 99 09/21/19 22:44 144/86 H 97 09/21/19 21:14 134/84 97 09/21/19 19:45 161/81 H 97 09/21/19 19:11 100 09/21/19 18:31 100 Pain Intensity Abdomen: Pain Intensity: 1 Notes Mental Status: alert / awake / arousable and participated in evaluation Patient Amnestic to Procedure: Yes Nausea / Vomiting: adequately controlled Pain: adequately controlled Airway Patency, RR, SpO2: stable & adequate BP & HR: stable & adequate Hydration State: stable & adequate Anesthetic Complications: no major complications apparent and Pt Satisfied with anesthetic care
[2019-09-22] MEDS: ASPIRIN 81 MG ECTAB PO SCH (08:30)
[2019-09-22] MEDS: ATORVASTATIN 40 MG TAB PO SCH (08:30)
[2019-09-22] MEDS: METOPROLOL TARTRATE 25 MG TAB PO SCH (08:31)
[2019-09-22] MEDS: lisinopriL 5 MG TAB PO SCH (08:31)
[2019-09-22] MEDS ORDERED: CLOPIDOGREL BISULFATE 75 MG TAB PO SCH (09:00)
[2019-09-22] MEDS ORDERED: SODIUM CHLORIDE 0.9% 1000ML 1,000 ML IV ONE (11:32)
[2019-09-22] MEDS ORDERED: OXYCODONE/ACETAMINOPHEN 5mg/325mg TAB PO PRN (11:39)
[2019-09-22 11:55] LABS: Hematocrit (blood only) 35.6 % (42-52); Hemoglobin 11.8 g/dL (14.0-18.0); Immature Granulocytes # (auto) 0.04 K/uL (0.00-0.02); Immature Granulocytes % (auto) 0.4 %; Lymphocytes # (auto) 1.03 K/uL (1.2-3.4); Lymphocytes % (auto) 9.2 %; Mean Corpuscular Hemoglobin 28.4 pg (25-34); Mean Corpuscular Hgb Conc 33.1 g/dL (32-36); Mean Corpuscular Volume 85.6 fL (80-100); Mean Platelet Volume 10.8 fL (7.4-10.4); Monocytes # (auto) 0.54 K/uL (0.11-0.59); Monocytes % (auto) 4.8 %; Neutrophils # (auto) 9.63 K/uL (1.4-6.5); Neutrophils % (auto) 85.6 %; Platelet Count 173 K/uL (130-400); RDW Coefficient of Variation 14.6 % (11.5-14.5); RDW Standard Deviation 45.6 fL (36.4-46.3); Red Blood Count 4.16 M/uL (4.7-6.1); White Blood Count 11.24 K/uL (4.8-10.8)
--- NOTE | 2019-09-22 12:15 | Surgery Progress Note ---
Date of Service September 22, 2019 Assessment & Plan (1) Appendicitis, acute, with generalized peritonitis: POD # 1 s/p laparoscopic appendectomy - post op hypotension, dizziness on ambulation - post op pain moderate, likely retained gas - abdomen soft but distended, incisions covered and dry - no n/v, tolerating clears Plan: Given hypotension and EKG showing ST elevation in setting of CAD and recent stent placement on aspirin and plavix. Stat CBC, 1 liter of NS bolus, consult hospitalist for comanagement. Hold home Lisinopril and Metoprolol PO Percocet and Tylenol as needed for pain. Morphine only for severe pain Continue clear liquids for now given distention May need suppository to soaker helper in bowel movement/passing gas OOB to chair and ambulation when BP improves SCDs for DVT prophylaxis Continue Plavix/aspirin (2) Hypotension: Subjective nursing staff called , patient got up to walk this morning and had dizziness. BP 94/58. Complaining of abdominal and right sided chest /shoulder/back pain. ROS of Knip, speaks little Maltese. Son not in room has not had bowel movement but passing gas tolerating liquids per nurse Had morphine this am, nothing else for pain since Physical Exam Constitutional: well nourished; no acute distress and not ill appearing Gastrointestinal (Abdomen): Inspection/Auscultation: + abdomen distended Percussion/Palpation: + abdomen tender and abdomen soft; no guarding and abdomen not rigid Skin: no rashes, warm and dry + incision (covered with dressings, dry) Psychiatric: Orientation: alert and oriented x 3 Results & Data Vital Signs (Past 12 Hours) Vital Signs Temp Pulse Pulse Pulse Resp BP BP 09/22/19 11:27 36.3 C L 60 17 83/45 L 09/22/19 10:45 94/58 L 09/22/19 08:34 104/65 09/22/19 08:00 103 H 09/22/19 07:37 36.3 C L 70 18 89/62 L 79/52 L 09/22/19 02:37 36.4 C L 74 18 127/73 09/22/19 01:47 36.4 C L 75 16 118/66 Pulse Ox 09/22/19 11:27 95 09/22/19 10:45 09/22/19 08:34 09/22/19 08:00 09/22/19 07:37 95 09/22/19 02:37 95 09/22/19 01:47 95 Laboratory Results 09/22/19 09/21/19 09/21/19 Range/Units 11:43 20:16 19:01 WBC 11.24 H (4.8-10.8) K/uL RBC 4.16 L (4.7-6.1) M/uL Hgb 11.8 L D (14.0-18.0) g/dL POC Hgb 16.3 (14.0-18.0) g/dl Hct 35.6 L (42-52) % POC Hct 48 (42-52) % MCV 85.6 (80-100) fL MCH 28.4 (25-34) pg MCHC 33.1 (32-36) g/dL RDW Std Deviation 45.6 (36.4-46.3) fL RDW Coeff of Kaylynn 14.6 H (11.5-14.5) % Plt Count 173 (130-400) K/uL MPV 10.8 H (7.4-10.4) fL Immature Gran % (Auto) 0.4 % Neut % (Auto) 85.6 % Lymph % (Auto) 9.2 % Hodgeman % (Auto) 4.8 % Eos % (Auto) 0.0 % Baso % (Auto) 0.0 % Immature Gran # (Auto) 0.04 H (0.00-0.02) K/uL Neut # (Auto) 9.63 H (1.4-6.5) K/uL Lymph # (Auto) 1.03 L (1.2-3.4) K/uL Hodgeman # (Auto) 0.54 (0.11-0.59) K/uL Eos # (Auto) 0.00 (0-0.5) K/uL Baso # (Auto) 0.00 (0-0.2) K/uL POC Sodium 132 L (135-144) mEq/L Sodium (136-145) mmol/L POC Potassium 4.8 (3.3-5.0) mEq/L Potassium (3.5-5.1) mmol/L POC Chloride 100 L (101-112) mEq/L Chloride (98-107) mmol/L Carbon Dioxide (21-32) mmol/L POC Total CO2 22 L (24-31) mEq/l Anion Gap (3-11) POC Anion Gap 15.0 L (16-25) mmol/L POC BUN 15 (7-18) mg/dl BUN (7-18) mg/dl Creatinine (0.6-1.4) mg/dl POC Creatinine 0.7 (0.6-1.3) mg/dl Est Cr Clr Drug Dosing Est GFR ( Amer) Est GFR (Non-Af Amer) BUN/Creatinine Ratio (10-20) Glucose (70-99) mg/dl POC Glucose (other) 151 H (70-99) mg/dl Calcium (8.5-10.1) mg/dl POC Ioniz Calcium Kieran 1.27 (1.12-1.32) mmol/l Total Bilirubin (0.2-1) mg/dl AST (15-37) U/L ALT (12-78) U/L Alkaline Phosphatase (45-117) U/L Troponin I (0-0.045) ng/ml Total Protein (6.4-8.2) gm/dl Albumin (3.4-5.0) gm/dl Globulin (2.5-4.0) gm/dl Albumin/Globulin Ratio (0.9-2) Lipase (73-393) U/L Urine Color Yellow Urine Appearance Cloudy A (Clear) Urine pH 8.0 H (4.5-7.5) Ur Specific [place] 1.023 (1.000-1.030) Urine Protein Negative (Negative) Urine Glucose (UA) Negative (Negative) Urine Ketones Negative (Negative) Urine Blood Negative (Negative) Urine Nitrite Negative (Negative) Urine Bilirubin Negative (Negative) Urine Urobilinogen Negative (Negative) Ur Leukocyte Esterase Negative (Negative) Urine WBC (Auto) 1-5 (0-5) /hpf Urine RBC (Auto) 0-4 (0-4) /hpf U Hyaline Cast (Auto) 1-5 (0-5) /lpf U Epithel Cells (Auto) 10-20 H (0-5) /lpf Urine Bacteria (Auto) Negative (Negative) 09/21/19 09/21/19 Range/Units 18:52 18:52 WBC 9.31 (4.8-10.8) K/uL RBC 5.38 (4.7-6.1) M/uL Hgb 15.5 (14.0-18.0) g/dL POC Hgb (14.0-18.0) g/dl Hct 45.9 (42-52) % POC Hct (42-52) % MCV 85.3 (80-100) fL MCH 28.8 (25-34) pg MCHC 33.8 (32-36) g/dL RDW Std Deviation 43.5 (36.4-46.3) fL RDW Coeff of Kaylynn 14.1 (11.5-14.5) % Plt Count 158 (130-400) K/uL MPV 10.5 H (7.4-10.4) fL Immature Gran % (Auto) 0.1 % Neut % (Auto) 82.0 % Lymph % (Auto) 12.0 % Hodgeman % (Auto) 4.9 % Eos % (Auto) 0.9 % Baso % (Auto) 0.1 % Immature Gran # (Auto) 0.01 (0.00-0.02) K/uL Neut # (Auto) 7.63 H (1.4-6.5) K/uL Lymph # (Auto) 1.12 L (1.2-3.4) K/uL Hod[place]eman # (Auto) 0.46 (0.11-0.59) K/uL Eos # (Auto) 0.08 (0-0.5) K/uL Baso # (Auto) 0.01 (0-0.2) K/uL POC Sodium (135-144) mEq/L Sodium 131 L (136-145) mmol/L POC Potassium (3.3-5.0) mEq/L Potassium 4.8 (3.5-5.1) mmol/L POC Chloride (101-112) mEq/L Chloride 101 (98-107) mmol/L Carbon Dioxide 25 (21-32) mmol/L POC Total CO2 (24-31) mEq/l Anion Gap 5.0 (3-11) POC Anion Gap (16-25) mmol/L POC BUN (7-18) mg/dl BUN 14 (7-18) mg/dl Creatinine 0.91 (0.6-1.4) mg/dl POC Creatinine (0.6-1.3) mg/dl Est Cr Clr Drug Dosing Not Reportable Est GFR ( Amer) 103.6 Est GFR (Non-Af Amer) 89.4 BUN/Creatinine Ratio 15.1 (10-20) Glucose 151 H (70-99) mg/dl POC Glucose (other) (70-99) mg/dl Calcium 10.2 H (8.5-10.1) mg/dl POC Ioniz Calcium Kieran (1.12-1.32) mmol/l Total Bilirubin 0.4 (0.2-1) mg/dl AST 33 (15-37) U/L ALT 42 (12-78) U/L Alkaline Phosphatase 126 H (45-117) U/L Troponin I < 0.015 (0-0.045) ng/ml Total Protein 8.2 (6.4-8.2) gm/dl Albumin 3.7 (3.4-5.0) gm/dl Globulin 4.5 H (2.5-4.0) gm/dl Albumin/Globulin Ratio 0.8 L (0.9-2) Lipase 307 (73-393) U/L Urine Color Urine Appearance (Clear) Urine pH (4.5-7.5) Ur Specific [place] (1.000-1.030) Urine Protein (Negative) Urine Glucose (UA) (Negative) Urine Ketones (Negative) Urine Blood (Negative) Urine Nitrite (Negative) Urine Bilirubin (Negative) Urine Urobilinogen (Negative) Ur Leukocyte Esterase (Negative) Urine WBC (Auto) (0-5) /hpf Urine RBC (Auto) (0-4) /hpf U Hyaline Cast (Auto) (0-5) /lpf U Epithel Cells (Auto) (0-5) /lpf Urine Bacteria (Auto) (Negative)
[2019-09-22] MEDS ORDERED: bisacodyL 10 MG SUPP PR STA (12:16)
[2019-09-22] MEDS ORDERED: PIPERACILL/TAZOBAC CONSULT ACTIVE PRN (12:21)
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
[2019-09-22 12:34] LABS: Alanine Aminotransferase 32 U/L (12-78); Albumin Level 2.9 gm/dl (3.4-5.0); Alkaline Phosphatase 89 U/L (45-117); Aspartate Aminotransferase 23 U/L (15-37); BUN Creatinine Ratio 13.2 (10-20); Bilirubin,Total 0.5 mg/dl (0.2-1); Blood Urea Nitrogen 21 mg/dl (7-18); Calcium 9.3 mg/dl (8.5-10.1); Carbon Dioxide 21 mmol/L (21-32); Chloride 106 mmol/L (98-107); Creatinine Clr Calc Pharmacy 55.8 ml/min; Est GFR (African American) 53.6; Est GFR (Non-African American) 46.2; Glucose 141 mg/dl (70-99); Sodium 134 mmol/L (136-145)
[2019-09-22 12:41] LABS: Albumin Globulin Ratio 0.8 (0.9-2); Creatine Kinase MB 1.1 ng/ml (0.5-3.6); Globulin 3.6 gm/dl (2.5-4.0); Total Protein 6.5 gm/dl (6.4-8.2); Troponin I < 0.015 ng/ml (0-0.045)
[2019-09-22] MEDS ORDERED: PIPERACILLIN/TAZOBACTAM 3.375 GM in DEXTROSE 5% 100 ML IV ONE (13:00)
[2019-09-22] MEDS: FAMOTIDINE 20 MG in SYRINGE 3 ML IV SCH ×2 (13:07→19:33)
--- NOTE | 2019-09-22 14:01 | CT Scan Report ---
CT chest wo con CLINICAL HISTORY: 64 years-old Male presenting with chest pain. TECHNIQUE: Multidetector CT imaging of the chest was performed without the use of intravenous contras t. IV contrast: None. One or more dose lowering techniques were used consistent with the principles o f ALARA (as low as reasonably achievable), including automatic exposure control, mA or kV adjustment to individual patient size, and/or use of iterative reconstruction. COMPARISON: None. CT DOSE (mGy.cm): The estimated cumulative dose is 702.66 mGy.cm. FINDINGS: Triage Nurse topogram: Unremarkable. Soft tissues: Normal thyroid and thoracic inlet. No axillary, supraclavicular, or mediastinal lymphad enopathy. Evaluation of the cristal limited without intravenous contrast. Atherosclerosis of the aorta. Normal heart size. Coronary artery calcification. No pericardial or pleural effusion. Small volume up per abdominal ascites. Vicarious excretion of contrast in the gallbladder noted. Lungs and airways: No pneumothorax. Central airways patent. Pulmonary arteries mildly enlarged relati ve to adjacent bronchi. No interlobular septal thickening. Extensive bibasilar consolidation and volu me loss in a dependent and paramediastinal distribution consistent with atelectasis. Respiratory madisyn on artifact mildly degrades evaluation of lung parenchyma. Musculoskeletal: Mild compression deformity of T8 are in mild multilevel degenerative changes. IMPRESSION: 1. Bibasilar atelectasis. 2. Mild volume overload suspected. 3. Mild compression deformity of T8. Correlate with point tenderness to assess for acute compression fracture. ACT 112: Negative or not required by law. Electronically signed by: Luis Miguel Lubin M.D. 09/22/2019 2:00 PM
--- NOTE | 2019-09-22 14:05 | CT Scan Report ---
CT OF THE ABDOMEN AND PELVIS WITHOUT CONTRAST CLINICAL HISTORY: Abdominal pain and distention. Postoperative anemia. COMPARISON STUDY: CT of the abdomen and pelvis September 21, 2019. TECHNIQUE: Axial images of the abdomen and pelvis were obtained without IV contrast. Images were revi ewed in the axial, sagittal, and coronal planes. Automated exposure control was utilized for the veronica dy. A dose lowering technique was utilized adhering to the principles of ALARA. FINDINGS: Note that the chest will be reported separately. Hyperdense material within the gallbladder represents vicarious excretion of contrast from prior CT. A small amount of pneumoperitoneum is post operative. Interval appendectomy is noted. Moderate hyperdense material within the operative bed is n oted. There is also hyperdense material extending into the pelvis and along the right hepatic lobe. T his represents hemoperitoneum. Moderate hemoperitoneum is present. A Bar balloon within the bladder is noted. There is no evidence for a bowel obstruction. No pneumatosis is present. Gas and infiltrat ion within the anterior abdominal wall is from recent laparoscopic appendectomy. There are no suspici ous osseous lesions. IMPRESSION: Moderate hemoperitoneum within the abdomen and pelvis. The densest clot is within the ap pendectomy bed which likely represents the source for hemorrhage. Urgent surgical consultation is rec ommended. Findings discussed with Korina Prado at time of dictation. ACT 112: Negative or not required by law. Electronically signed by: Saturnino Patterson M.D. 09/22/2019 2:04 PM
[2019-09-22 15:34] LABS: Hematocrit (blood only) 33.5 % (42-52)
[2019-09-22] MEDS: OXYCODONE/ACETAMINOPHEN 5mg/325mg TAB PO PRN (15:47)
[2019-09-22] MEDS: PIPERACILLIN/TAZOBACTAM 3.375 GM in DEXTROSE 5% 100 ML IV SCH (19:33)
[2019-09-22 21:17] LABS: Hematocrit (blood only) 31.4 % (42-52); Hemoglobin 10.3 g/dL (14.0-18.0)
[2019-09-23] MEDS: LACTATED RINGER'S 1,000 ML IV SCH ×2 (01:01→16:24)
[2019-09-23 03:30] LABS: Hematocrit (blood only) 29.6 % (42-52); Hemoglobin 9.8 g/dL (14.0-18.0); Mean Corpuscular Hemoglobin 28.6 pg (25-34); Mean Corpuscular Hgb Conc 33.1 g/dL (32-36); Mean Corpuscular Volume 86.3 fL (80-100); Mean Platelet Volume 10.8 fL (7.4-10.4); Platelet Count 145 K/uL (130-400); RDW Standard Deviation 47.1 fL (36.4-46.3); Red Blood Count 3.43 M/uL (4.7-6.1); White Blood Count 9.82 K/uL (4.8-10.8)
[2019-09-23] MEDS: PIPERACILLIN/TAZOBACTAM 3.375 GM in DEXTROSE 5% 100 ML IV SCH ×3 (03:35→20:09)
[2019-09-23 03:57] LABS: BUN Creatinine Ratio 16.1 (10-20); Calcium 9.2 mg/dl (8.5-10.1); Creatinine Clr Calc Pharmacy 92.2 ml/min; Est GFR (African American) 98.3; Est GFR (Non-African American) 84.9
[2019-09-23 07:08] LABS: Hemoglobin 10.2 g/dL (14.0-18.0)
--- NOTE | 2019-09-23 08:46 | Hospitalist Progress Note ---
Date of Service September 23, 2019 Assessment & Plan (1) S/P laparoscopic appendectomy: POD #2 laparoscopic appendectomy secondary to acute appendicitis by Dr. Johnson Tolerated procedure well EBL minimal 10 mm Pain/wound management per surgery Activity and therapy as directed by surgery NPO awaiting surgical recommendations given CT Scan findings: Moderate hemoperitoneum within the abdomen and pelvis. The densest clot is within the appendectomy bed which likely represents the source for hemorrhage. Continue IV Zosyn for now - cultures pending (2) Postoperative hypotension: likely in setting of JC and ABL anemia concern for drop in hgb from 15 --> 10.2 CT scan : moderate hemoperitoneum hypotension resolved with IVF and improvement of renal fxn continue IVF while NPO (3) Postoperative anemia: acute blood loss anemia in setting of post op moderate hemoperitoneum await surgical recommendations continue to trend h/h hemodynamics improved H/H 10.2 and 31.0 today ( preop hgb 15) (4) Abdominal pain: continue pain control per surg 2/2 to post op changes with hemoperitoneum (5) CAD (coronary artery disease): continue asa, statin, metoprolol resume lisinopril no chest pain/sob, trop WNL Plavix on hold for now given hemoperitoneum Discussed with nursing unit coordinator Dr. Loera who has been consulted as well (6) JC (acute kidney injury): Baseline creatinine 0.9 BUN/creatinine 21 and 1.57 yesterday resolved with luna insertion likely in setting of obstructive uropathy monitor daily labs continue luna - will remove once ambulating more and hemoperitoneum resolved (7) DVT prophylaxis: SCD/TEDS continue ASA - hold plavix Disposition: Per primary Follow-up: PCP Dr. Garrison upon discharge Patient was seen and examined in collaboration with Dr. Richard, please see addendum Thank you for this consultation. We will follow the patient with you during their hospital stay. You can [facility] a [facility] via pager @ [phone]. Supervising Physician Co-Signing Physician Notes Patient is seen and examined at bedside. He feels a lot better today. Had bowel movement. Abdominal pain is controlled. Denies any chest pain, shortness of breath, dizziness, nausea, vomiting today. Hemoglobin slightly dropped likely dilutional due to IV fluids. Renal function back to baseline after IV fluids. On exam patient is moderately built and nourished, no apparent distress, normocephalic atraumatic, lungs are clear to auscultation, S1-S2, no murmur, abdomen soft, mildly distended, mild tenderness, surgical site in dressing, diminished bowel sounds, no pedal edema, grossly nonfocal neurological status. Continue to hold Plavix for now. Blood cultures show no growth. Blood pressure improved today. Continue IV Zosyn empirically. Wound care as per surgery team. Hemodynamically stable today. I personally reviewed the record. Patient is interviewed and examined at bedside. Patient's care is coordinated with Korina Prado PA-C. Please refer to the documentation above for details of patient's presentation and for discussion of other issues. Subjective Patient seen and examined in room 230-1. Follow up POD #2 Laparoscopic appendectomy. He is lying in bed. Nursing offers no complaints overnight. Moved his bowels. Continues to have Luna cath in place. Complains of abdominal pain specifically right lower quadrant radiating to right upper quadrant and right shoulder. Abdomen significantly distended. Pain worse with movement and deep breathing. Denies fever, chills, sweats dizziness, chest pain, shortness of breath, palpitations. Pt remains NPO. Has abdominal dressing in place. Per nursing significant serosanguineous drainage yesterday. Review of Systems Review of Systems: All systems reviewed & are unremarkable except as noted in HPI & below Physical Exam Physical Exam: Gen: WD/WN, M, lying in bed, NAD, A&O x3 HEENT: Normocephalic, atraumatic, conjunctivae moist, sclerae anicteric, mucous membranes dry. Lung: Clear to Auscultation bilaterally, no wheezes/rales/rhonchi Heart: Regular rate, regular rhythm, no murmurs, rubs, or gallops Abdomen: Soft, distended abdomen, significant tenderness to palp RLQ. No rebound or rigidity, no guarding. +BS, but diminished. Dressing intact, clean. Extremities: No edema Skin: Warm, no rash, negative turgor. : +luna cath draining clear yellow urine Results & Data Vital Signs (Past 12 Hours) Vital Signs Temp Pulse Resp BP BP Pulse Ox 09/23/19 07:10 36.6 C 76 18 146/74 H 95 09/23/19 03:35 36.4 C L 72 18 135/69 95 09/23/19 00:04 36.7 C 73 19 117/67 96 Laboratory Results Short CBC 09/21/19 09/22/19 09/22/19 Range/Units 18:52 11:43 11:44 WBC 11.24 H (4.8-10.8) K/uL Hgb 11.8 L D (14.0-18.0) g/dL Hct 35.6 L (42-52) % Plt Count 173 (130-400) K/uL Creatinine 0.91 1.57 H D (0.6-1.4) mg/dl 09/22/19 09/22/19 09/23/19 Range/Units 15:21 21:10 03:15 WBC 9.82 (4.8-10.8) K/uL Hgb 11.0 L 10.3 L 9.8 L (14.0-18.0) g/dL Hct 33.5 L 31.4 L 29.6 L (42-52) % Plt Count 145 (130-400) K/uL Creatinine (0.6-1.4) mg/dl 09/23/19 09/23/19 Range/Units 03:15 06:58 WBC (4.8-10.8) K/uL Hgb 10.2 L (14.0-18.0) g/dL Hct 31.0 L (42-52) % Plt Count (130-400) K/uL Creatinine 0.95 D (0.6-1.4) mg/dl BMP 09/22/19 09/23/19 11:44 03:15 Sodium 134 L 134 L Potassium 5.0 5.0 Chloride 106 107 Carbon Dioxide 21 29 BUN 21 H 15 Creatinine 1.57 H D 0.95 D Glucose 141 H 109 H Calcium 9.3 9.2 Cardiac Enzymes 09/22/19 Range/Units 11:44 CK-MB (CK-2) 1.1 (0.5-3.6) ng/ml Troponin I < 0.015 (0-0.045) ng/ml Liver Function 09/22/19 Range/Units 11:44 Total Bilirubin 0.5 (0.2-1) mg/dl AST 23 (15-37) U/L ALT 32 (12-78) U/L Alkaline Phosphatase 89 (45-117) U/L Albumin 2.9 L (3.4-5.0) gm/dl Medications Administered Aspirin (Ecotrin Ectab) 81 mg PO [facility] Stop: 10/22/19 08:59 Last Admin: 09/22/19 08:30 Dose: 81 mg Documented by: [id number] Atorvastatin Calcium (Lipitor) 80 mg PO [facility] Stop: 10/22/19 08:59 Last Admin: 09/22/19 08:30 Dose: 80 mg Documented by: [id number] Clopidogrel Bisulfate (Plavix) 75 mg PO [facility] Stop: 10/22/19 08:59 Last Admin: 09/22/19 08:30 Dose: 75 mg Documented by: [id number] Lactated Ringer's (Lr) 1,000 mls @ 75 mls/hr IV .[id number] [facility] Stop: 10/22/19 00:00 Last Admin: 09/23/19 01:01 Dose: 75 mls/hr Documented by: [id number] Infusion: 09/23/19 01:01 Dose: 75 mls/hr Documented by: [id number] Admin: 09/22/19 12:36 Dose: 75 mls/hr Documented by: [id number] Infusion: 09/22/19 12:36 Dose: 0 mls/hr Documented by: [id number] Infusion: 09/22/19 12:00 Dose: 0 mls/hr Documented by: [id number] Admin: 09/22/19 00:47 Dose: 75 mls/hr Documented by: [id number] Famotidine 20 mg/ Syringe 5 mls @ 2.5 mls/min IV BID [facility] Stop: 10/22/19 12:29 Last Admin: 09/22/19 19:33 Dose: 2.5 mls/min Documented by: [id number] Admin: 09/22/19 13:07 Dose: 2.5 mls/min Documented by: [id number] Piperacillin Sod/Tazobactam (Sod 3.375 gm/ Dextrose) 115 mls @ 28.75 mls/hr IV Q8H [facility]; Protocol Stop: 10/02/19 19:59 Last Infusion: 09/23/19 07:22 Dose: 0 mls/hr Documented by: [id number] Admin: 09/23/19 03:35 Dose: 28.8 mls/hr Documented by: [id number] Infusion: 09/23/19 00:17 Dose: 0 mls/hr Documented by: [id number] Admin: 09/22/19 19:33 Dose: 28.8 mls/hr Documented by: [id number] Ioversol (Optiray 320 100ml) 93 ml IV ONCE PRN PRN Reason: Interaction Checking Stop: 09/25/19 19:32 Last Admin: 09/21/19 19:33 Dose: 93 ml Documented by: [id number] Lisinopril (Zestril) 5 mg PO QAM [facility] Stop: 10/22/19 08:59 Last Admin: 09/22/19 08:31 Dose: Not Given Documented by: [id number] Metoprolol Tartrate (Lopressor) 25 mg PO DAILY [facility] Stop: 10/22/19 08:59 Last Admin: 09/22/19 08:31 Dose: Not Given Documented by: [id number] Morphine Sulfate (Morphine Sulfate) 3 mg IV Q3H PRN PRN Reason: Pain Stop: 10/05/19 22:59 Last Admin: 09/22/19 08:30 Dose: 3 mg Documented by: [id number] Admin: 09/22/19 02:33 Dose: 3 mg Documented by: [id number] Oxycodone/Acetaminophen (Percocet 5mg/325mg) 2 tab PO Q4H PRN PRN Reason: MODERATE Pain (Scale 4,5,6) Stop: 10/05/19 22:36 Last Admin: 09/22/19 15:47 Dose: 2 tab Documented by: [id number] Oxycodone/Acetaminophen (Percocet 5mg/325mg) 1 tab PO Q4H PRN PRN Reason: Pain Stop: 10/06/19 11:38 Last Admin: 09/22/19 11:52 Dose: 1 tab Documented by: [id number] Discontinued Medications Albuterol (Duoneb) 3 ml NEB NOW STA Stop: 09/21/19 22:54 Last Admin: 09/21/19 23:14 Dose: 3 ml Documented by: [id number] Bisacodyl (Dulcolax) 10 mg OK NOW STA Stop: 09/22/19 12:17 Last Admin: 09/22/19 12:23 Dose: 10 mg Documented by: [id number] Bupivacaine HCl/Epinephrine Bitart (Sensorcaine/Epinephrine 0.5% Mpf 1:200,000) Confirm Administered Dose 30 ml .ROUTE .STK-MED ONE Stop: 09/21/19 21:37 Last Admin: 09/21/19 22:20 Dose: 20 ml Documented by: [id number] Sodium Chloride (Nss 1000ml) 1,000 mls @ 999 mls/hr IV .Q1H1M [place] Stop: 09/21/19 20:00 Last Infusion: 09/21/19 20:16 Dose: 0 mls/hr Documented by: [id number] Admin: 09/21/19 19:12 Dose: 999 mls/hr Documented by: [id number] Cefoxitin Sodium (Mefoxin) 2,000 mg in 60 mls @ 100 mls/hr IV NOW STA Stop: 09/21/19 21:34 Last Infusion: 09/22/19 00:28 Dose: 0 mls/hr Documented by: [id number] Admin: 09/21/19 21:11 Dose: 100 mls/hr Documented by: [id number] Cefoxitin Sodium 2,000 mg/ (Dextrose) 60 mls @ 100 mls/hr IV Q8H [facility] Stop: 10/02/19 03:59 Last Infusion: 09/22/19 12:17 Dose: 0 mls/hr Documented by: [id number] Admin: 09/22/19 11:38 Dose: 100 mls/hr Documented by: [id number] Infusion: 09/22/19 05:45 Dose: 0 mls/hr Documented by: [id number] Admin: 09/22/19 05:01 Dose: 100 mls/hr Documented by: [id number] Sodium Chloride (Nss 1000ml) 1,000 mls @ 999 mls/hr IV .Q1H1M ONE Stop: 09/22/19 12:32 Last Infusion: 09/22/19 14:02 Dose: 0 mls/hr Documented by: [id number] Admin: 09/22/19 11:36 Dose: 999 mls/hr Documented by: [id number] Piperacillin Sod/Tazobactam (Sod 3.375 gm/ Dextrose) 115 mls @ 230 mls/hr IV NOW ONE; Protocol Stop: 09/22/19 13:29 Last Infusion: 09/22/19 14:02 Dose: 0 mls/hr Documented by: [id number] Admin: 09/22/19 13:07 Dose: 230 mls/hr Documented by: [id number] Morphine Sulfate (Morphine Sulfate) 4 mg IV NOW STA Stop: 09/21/19 18:47 Last Admin: 09/21/19 19:13 Dose: 4 mg Documented by: [id number] Ondansetron HCl (Zofran) 4 mg IV NOW STA Stop: 09/21/19 18:47 Last Admin: 09/21/19 19:13 Dose: 4 mg Documented by: [id number] ECG Rate (beats per minute): 88 Rhythm: normal sinus Findings: + RBBB (1) CAD (coronary artery disease) Associated angina: angina presence unspecified Coronary Disease-Associated Artery/Lesion type: unspecified vessel or lesion type [place] vs. transplanted heart: [place] heart Qualified Code(s): I25.10 - Atherosclerotic heart disease of [place] coronary artery without angina pectoris
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
[2019-09-23 09:15] LABS: Hematocrit (blood only) 31.1 % (42-52)
[2019-09-23] MEDS: ATORVASTATIN 40 MG TAB PO SCH (09:17)
[2019-09-23] MEDS: METOPROLOL TARTRATE 25 MG TAB PO SCH (09:18)
[2019-09-23] MEDS: ASPIRIN 81 MG ECTAB PO SCH (09:19)
[2019-09-23] MEDS: FAMOTIDINE 20 MG in SYRINGE 3 ML IV SCH ×2 (09:22→20:09)
--- NOTE | 2019-09-23 10:38 | Surgery Progress Note ---
Date of Service September 23, 2019 Assessment & Plan (1) Appendicitis, acute, with generalized peritonitis: POD # 2 s/p laparoscopic appendectomy - afebrile, no leukocytosis - hemoperitoneum, hemodynamically stable, H&H stable 10.0 this am - pressure dressing on LLQ incision - currently holding Plavix on 81 mg of aspirin Plan: Will continue close monitoring as he is hemodynamically stable and H&H stable Given the plavix has only been held for 1 day, there is risk of new or further b leeding intraoperatively. Will continue clear liquids Continue current medical management, appreciate their assistance Cardiology okay to hold Plavix in setting of hemoperitoneum, continue aspirin if does well and if continues to be stable would recommend resuming Plavix as soon as possible. Continue pain management as needed encourage ambulation and incentive spirometry SCDs for dvt prophylaxis continue pressure dressing (2) Hemoperitoneum: plan as above Dr. Delgado has seen and examined pt, agrees with above. Subjective son present at bedside, patient denies of any nausea or vomiting tolerated clear liquids this morning, completed whole tray having some abdominal pain, mild per nursing staff doing well, vitals stable, afebrile, not tachycardic or hypotensive Physical Exam Constitutional: WD/WN, vitals as above no acute distress Respiratory: no respiratory distress Gastrointestinal (Abdomen): Inspection/Auscultation: abdomen normal to inspection, + abdomen distended (mildly) and + abdominal surgical incision (covered with dressings, there is pressure dressing on LLQ) Percussion/Palpation: + abdomen tender (at incision sites only) and abdomen soft; no guarding and abdomen not rigid Skin: no rashes, warm and dry Results & Data Vital Signs (Past 12 Hours) Vital Signs Temp Pulse Pulse Resp BP BP Pulse Ox 09/23/19 07:10 36.6 C 76 18 146/74 H 95 09/23/19 07:00 85 09/23/19 03:35 36.4 C L 72 18 135/69 95 09/23/19 00:04 36.7 C 73 19 117/67 96 Laboratory Results 09/23/19 09/23/19 09/23/19 Range/Units 08:49 06:58 03:15 WBC (4.8-10.8) K/uL RBC (4.7-6.1) M/uL Hgb 10.0 L 10.2 L (14.0-18.0) g/dL Hct 31.1 L 31.0 L (42-52) % MCV (80-100) fL MCH (25-34) pg MCHC (32-36) g/dL RDW Std Deviation (36.4-46.3) fL RDW Coeff of Kaylynn (11.5-14.5) % Plt Count (130-400) K/uL MPV (7.4-10.4) fL Immature Gran % (Auto) % Neut % (Auto) % Lymph % (Auto) % [place] % (Auto) % Eos % (Auto) % Baso % (Auto) % Immature Gran # (Auto) (0.00-0.02) K/uL Neut # (Auto) (1.4-6.5) K/uL Lymph # (Auto) (1.2-3.4) K/uL [place] # (Auto) (0.11-0.59) K/uL Eos # (Auto) (0-0.5) K/uL Baso # (Auto) (0-0.2) K/uL Sodium 134 L (136-145) mmol/L Potassium 5.0 (3.5-5.1) mmol/L Chloride 107 (98-107) mmol/L Carbon Dioxide 29 (21-32) mmol/L Anion Gap -2.0 L (3-11) BUN 15 (7-18) mg/dl Creatinine 0.95 D (0.6-1.4) mg/dl Est Cr Clr Drug Dosing 92.2 ml/min Est GFR ( Amer) 98.3 Est GFR (Non-Af Amer) 84.9 BUN/Creatinine Ratio 16.1 (10-20) Glucose 109 H (70-99) mg/dl Calcium 9.2 (8.5-10.1) mg/dl Total Bilirubin (0.2-1) mg/dl AST (15-37) U/L ALT (12-78) U/L Alkaline Phosphatase (45-117) U/L CK-MB (CK-2) (0.5-3.6) ng/ml Troponin I (0-0.045) ng/ml Total Protein (6.4-8.2) gm/dl Albumin (3.4-5.0) gm/dl Globulin (2.5-4.0) gm/dl Albumin/Globulin Ratio (0.9-2) Blood Type Antibody Screen 09/23/19 09/22/19 09/22/19 Range/Units 03:15 21:10 15:21 WBC 9.82 (4.8-10.8) K/uL RBC 3.43 L (4.7-6.1) M/uL Hgb 9.8 L 10.3 L 11.0 L (14.0-18.0) g/dL Hct 29.6 L 31.4 L 33.5 L (42-52) % MCV 86.3 (80-100) fL MCH 28.6 (25-34) pg MCHC 33.1 (32-36) g/dL RDW Std Deviation 47.1 H (36.4-46.3) fL RDW Coeff of Kaylynn 15.0 H (11.5-14.5) % Plt Count 145 (130-400) K/uL MPV 10.8 H (7.4-10.4) fL Immature Gran % (Auto) % Neut % (Auto) % Lymph % (Auto) % [place] % (Auto) % Eos % (Auto) % Baso % (Auto) % Immature Gran # (Auto) (0.00-0.02) K/uL Neut # (Auto) (1.4-6.5) K/uL Lymph # (Auto) (1.2-3.4) K/uL [place] # (Auto) (0.11-0.59) K/uL Eos # (Auto) (0-0.5) K/uL Baso # (Auto) (0-0.2) K/uL Sodium (136-145) mmol/L Potassium (3.5-5.1) mmol/L Chloride (98-107) mmol/L Carbon Dioxide (21-32) mmol/L Anion Gap (3-11) BUN (7-18) mg/dl Creatinine (0.6-1.4) mg/dl Est Cr Clr Drug Dosing ml/min Est GFR ( Amer) Est GFR (Non-Af Amer) BUN/Creatinine Ratio (10-20) Glucose (70-99) mg/dl Calcium (8.5-10.1) mg/dl Total Bilirubin (0.2-1) mg/dl AST (15-37) U/L ALT (12-78) U/L Alkaline Phosphatase (45-117) U/L CK-MB (CK-2) (0.5-3.6) ng/ml Troponin I (0-0.045) ng/ml Total Protein (6.4-8.2) gm/dl Albumin (3.4-5.0) gm/dl Globulin (2.5-4.0) gm/dl Albumin/Globulin Ratio (0.9-2) Blood Type Antibody Screen 09/22/19 09/22/19 09/22/19 Range/Units 15:21 11:44 11:43 WBC 11.24 H (4.8-10.8) K/uL RBC 4.16 L (4.7-6.1) M/uL Hgb 11.8 L D (14.0-18.0) g/dL Hct 35.6 L (42-52) % MCV 85.6 (80-100) fL MCH 28.4 (25-34) pg MCHC 33.1 (32-36) g/dL RDW Std Deviation 45.6 (36.4-46.3) fL RDW Coeff of Kaylynn 14.6 H (11.5-14.5) % Plt Count 173 (130-400) K/uL MPV 10.8 H (7.4-10.4) fL Immature Gran % (Auto) 0.4 % Neut % (Auto) 85.6 % Lymph % (Auto) 9.2 % [place] % (Auto) 4.8 % Eos % (Auto) 0.0 % Baso % (Auto) 0.0 % Immature Gran # (Auto) 0.04 H (0.00-0.02) K/uL Neut # (Auto) 9.63 H (1.4-6.5) K/uL Lymph # (Auto) 1.03 L (1.2-3.4) K/uL [place] # (Auto) 0.54 (0.11-0.59) K/uL Eos # (Auto) 0.00 (0-0.5) K/uL Baso # (Auto) 0.00 (0-0.2) K/uL Sodium 134 L (136-145) mmol/L Potassium 5.0 (3.5-5.1) mmol/L Chloride 106 (98-107) mmol/L Carbon Dioxide 21 (21-32) mmol/L Anion Gap 7.0 (3-11) BUN 21 H (7-18) mg/dl Creatinine 1.57 H D (0.6-1.4) mg/dl Est Cr Clr Drug Dosing 55.8 ml/min Est GFR ( Amer) 53.6 Est GFR (Non-Af Amer) 46.2 BUN/Creatinine Ratio 13.2 (10-20) Glucose 141 H (70-99) mg/dl Calcium 9.3 (8.5-10.1) mg/dl Total Bilirubin 0.5 (0.2-1) mg/dl AST 23 (15-37) U/L ALT 32 (12-78) U/L Alkaline Phosphatase 89 (45-117) U/L CK-MB (CK-2) 1.1 (0.5-3.6) ng/ml Troponin I < 0.015 (0-0.045) ng/ml Total Protein 6.5 D (6.4-8.2) gm/dl Albumin 2.9 L (3.4-5.0) gm/dl Globulin 3.6 (2.5-4.0) gm/dl Albumin/Globulin Ratio 0.8 L (0.9-2) Blood Type O Positive Antibody Screen NEGATIVE
[2019-09-23 15:26] LABS: Hematocrit (blood only) 29.6 % (42-52); Hemoglobin 9.6 g/dL (14.0-18.0)
[2019-09-23] MEDS: OXYCODONE/ACETAMINOPHEN 5mg/325mg TAB PO PRN (16:42)
[2019-09-24] MEDS: PIPERACILLIN/TAZOBACTAM 3.375 GM in DEXTROSE 5% 100 ML IV SCH ×2 (03:53→14:19)
[2019-09-24 05:53] LABS: Hematocrit (blood only) 26.5 % (42-52); Hemoglobin 8.6 g/dL (14.0-18.0); Mean Corpuscular Hemoglobin 28.6 pg (25-34); Mean Corpuscular Hgb Conc 32.5 g/dL (32-36); Mean Platelet Volume 10.2 fL (7.4-10.4); Platelet Count 113 K/uL (130-400); RDW Standard Deviation 48.4 fL (36.4-46.3); Red Blood Count 3.01 M/uL (4.7-6.1); White Blood Count 5.84 K/uL (4.8-10.8)
[2019-09-24] MEDS: LACTATED RINGER'S 1,000 ML IV SCH ×2 (05:53→19:21)
[2019-09-24 06:31] LABS: BUN Creatinine Ratio 10.3 (10-20); Creatinine Clr Calc Pharmacy 87.1 ml/min; Est GFR (African American) 95.9; Est GFR (Non-African American) 82.7; Magnesium 1.9 mg/dl (1.8-2.4); Potassium 3.8 mmol/L (3.5-5.1)
[2019-09-24] MEDS: ASPIRIN 81 MG ECTAB PO SCH (09:16)
[2019-09-24] MEDS: lisinopriL 5 MG TAB PO SCH (09:16)
[2019-09-24] MEDS: METOPROLOL TARTRATE 25 MG TAB PO SCH (09:16)
[2019-09-24] MEDS: ATORVASTATIN 40 MG TAB PO SCH (09:16)
[2019-09-24] MEDS: FAMOTIDINE 20 MG in SYRINGE 3 ML IV SCH ×2 (09:29→19:22)
--- NOTE | 2019-09-24 11:43 | Surgery Progress Note ---
Date of Service pt's son is at bedside, pt feels better, no abdominal pain, no chest pain, no dizziness, passed BM today, H/H 8.6/26.5. September 24, 2019 Assessment & Plan (1) Appendicitis, acute, with generalized peritonitis: POD # 2 s/p laparoscopic appendectomy - afebrile, no leukocytosis - hemoperitoneum, hemodynamically stable, H&H stable 10.0 this am - pressure dressing on LLQ incision - currently holding Plavix on 81 mg of aspirin Plan: Will continue close monitoring as he is hemodynamically stable and H&H stable Given the plavix has only been held for 1 day, there is risk of new or further bleeding intraoperatively. Will continue clear liquids Continue current medical management, appreciate their assistance Cardiology okay to hold Plavix in setting of hemoperitoneum, continue aspirin if does well and if continues to be stable would recommend resuming Plavix as soon as possible. Continue pain management as needed encourage ambulation and incentive spirometry SCDs for dvt prophylaxis continue pressure dressing 09/24/2019 11:52AM, DR. Park base on pt has no symptoms, pt feels better, will repeat H/H in am, D/W possible RBC transfusion if H<8, pt and his son agree with it. possible surgery if pt is getting worse, they agree with it, possible plavix is still working, may need a couple of days more to stop plavix working, I answered all questions. will F/U (2) Hemoperitoneum: plan as above Dr. Delgado has seen and examined pt, agrees with above. Supervising Physician Co-Signing Physician Notes Patient is seen and examined at bedside. He feels a lot better today. Had bowel movement. Abdominal pain is controlled. Denies any chest pain, shortness of breath, dizziness, nausea, vomiting today. Hemoglobin slightly dropped likely dilutional due to IV fluids. Renal function back to baseline after IV fluids. On exam patient is moderately built and nourished, no apparent distress, normocephalic atraumatic, lungs are clear to auscultation, S1-S2, no murmur, abdomen soft, mildly distended, mild tenderness, surgical site in dressing, diminished bowel sounds, no pedal edema, grossly nonfocal neurological status. Continue to hold Plavix for now. Blood cultures show no growth. Blood pressure improved today. Continue IV Zosyn empirically. Wound care as per surgery team. Hemodynamically stable today. I personally reviewed the record. Patient is interviewed and examined at bedside. Patient's care is coordinated with Korina Prado PA-C. Please refer to the documentation above for details of patient's presentation and for discussion of other issues. Subjective Patient seen and examined in room 230-1. Follow up POD #2 Laparoscopic appendectomy. He is lying in bed. Nursing offers no complaints overnight. Moved his bowels. Continues to have Bar cath in place. Complains of abdominal pain specifically right lower quadrant radiating to right upper quadrant and right shoulder. Abdomen significantly distended. Pain worse with movement and deep breathing. Denies fever, chills, sweats dizziness, chest pain, shortness of breath, palpitations. Pt remains NPO. Has abdominal dressing in place. Per nursing significant serosanguineous drainage yesterday. Review of Systems Constitutional: + anorexia; no fever, no chills, no malaise and no weakness Gastrointestinal: + abdominal pain and + nausea; no vomiting and no change in bowel habits Physical Exam Constitutional: WD/WN, vitals as above well developed and well nourished Neck: trachea midline, no thyromegaly Respiratory: normal respiratory effort, lungs clear to auscultation normal respiratory effort Cardiovascular: RRR, no murmur, no edema Gastrointestinal (Abdomen): soft, NT, ND, no active bleeding from incision sites, Skin: no rashes, warm and dry Neurologic: awake Psychiatric: Orientation: alert and oriented x 3 Results & Data Vital Signs (Past 12 Hours) Vital Signs Temp Pulse Pulse Resp BP Pulse Ox 09/24/19 07:05 76 09/24/19 06:55 36.7 C 75 18 145/74 H 92 09/24/19 03:46 36.7 C 79 18 124/71 91
--- NOTE | 2019-09-24 12:41 | Hospitalist Progress Note ---
Date of Service September 24, 2019 Assessment & Plan (1) S/P laparoscopic appendectomy: Laparoscopic appendectomy for acute appendicitis by Dr. Johnson on 09/21/19 Tolerated procedure well EBL minimal 10 mm Complicated by postop hemoperitoneum as discussed below. Pain/wound management per surgery Activity and therapy as directed by surgery On clear liquid diet Blood cultures negative for 24 hours. Hypotension likely due to postop bleeding. No leukocytosis. Will recommend discontinuing antibiotics (2) Hemoperitoneum: (3) Postoperative hypotension: (4) Postoperative anemia: Postop hypotension and anemia from acute hemoperitoneum In the setting of dual antiplatelet therapy for recent stents on 07/24/2019 for multivessel CAD Had a blood pressure of 99/61 recorded at 11:30 PM yesterday. Blood pressure has remained stable since. Has a hemoglobin drop from 9.6-8.6 this morning. Recommend recheck another CBC later today and tomorrow morning to assess hemoglobin Plan to transfuse PRN for hemoglobin less than 7 or hemodynamic compromise Continue to hold Plavix for now due to aforementioned Cardiology on board as well Continue IVF Hemoperitoneum management per Primary Surgery team (5) Abdominal pain: Continue pain control per surg team (6) CAD (coronary artery disease): Continue asa, statin, metoprolol Received lisinopril this AM. Monitor BP. Hold if hypotensive Plavix on hold for now given hemoperitoneum Cardiology on board (7) JC (acute kidney injury): Resolved Baseline creatinine 0.9 Reported to have resolved with luna insertion likely in setting of obstructive uropathy Continue to monitor (8) DVT prophylaxis: SCD/TEDS We will follow the patient with you during their hospital stay. You can reach me or a member of the [facility] Hospitalist Team 23/04 via pager @ [phone]. Subjective 64-year-old man with history of hep C, CAD who presented to the ER for abdominal pain, found to have acute appendicitis and underwent laparoscopic appendectomy on 09/21/2019, was noted to develop postop day 1 hypotension with significant abdominal pain and distention and significant hemoglobin drop from baseline with CT abdomen showing moderate hemoperitoneum Patient is [place] speaking only but did not want to use the english instructor. He insisted that the son who was at bedside interpret This morning, patient reported earlier abdominal distention and feeling "gassy', which improved after having a bowel movement about 30 minutes prior to my evaluation. Bowel movement was reported to be watery and loose, nonbloody Still reports abdominal pain, poor appetite and some nausea Review of Systems Review of Systems: All systems reviewed and unremarkable except for mentioned above. Physical Exam Physical Exam: General: No acute distress and well nourished Eyes: PERRL, conjunctivae normal, mold pallor, anicteric sclerae, EOM in tact bilaterally ENMT: External ear and nose normal, oropharynx normal Neck: Normal visual inspection, no tracheal deviation, no swelling noted Respiratory: Normal respiratory effort, no respiratory distress, lungs clear to auscultation, no crackles and no wheezes Cardiovascular: Pulse is RRR.S1 S2, no murmurs, no pedal edema Chest (Breasts): Chest: normal inspection of chest Gastrointestinal (Abdomen): Abdomen is mildly distended, covered in dressing, soft, mild tenderness to palpation [especially in the right quadrants], no guarding, no palpable hepatosplenomegaly, reduced bowel sounds Musculoskeletal: No cyanosis or clubbing, all extremities motor strength 5/5 Skin: No rash noted on gross inspection, No ulcers noted Neurologic: Alert and oriented x 3, No focal weakness, sensation grossly intact Psychiatric: Euthymic affect, no depressed affect Results & Data Vital Signs (Past 12 Hours) Vital Signs Temp Pulse Pulse Resp BP BP Pulse Ox 09/24/19 11:51 36.4 C L 81 20 144/73 H 94 09/24/19 07:05 76 09/24/19 06:55 36.7 C 75 18 145/74 H 92 09/24/19 03:46 36.7 C 79 18 124/71 91 Laboratory Results Abnormal lab results 09/23/19 09/24/19 09/24/19 Range/Units 15:16 05:22 05:22 RBC 3.01 L (4.7-6.1) M/uL Hgb 9.6 L 8.6 L (14.0-18.0) g/dL Hct 29.6 L 26.5 L (42-52) % RDW Std Deviation 48.4 H (36.4-46.3) fL RDW Coeff of Kaylynn 15.0 H (11.5-14.5) % Plt Count 113 L (130-400) K/uL Chloride 109 H (98-107) mmol/L Anion Gap -1.0 L (3-11) (1) CAD (coronary artery disease) Associated angina: angina presence unspecified Coronary Disease-Associated Artery/Lesion type: unspecified vessel or lesion type [place] vs. transplanted heart: [place] heart Qualified Code(s): I25.10 - Atherosclerotic heart disease of [place] coronary artery without angina pectoris
--- NOTE | 2019-09-24 16:15 | CT Scan Report ---
CT OF THE ABDOMEN AND PELVIS WITHOUT CONTRAST CLINICAL HISTORY: to reassess hemoperitoneum COMPARISON STUDY: CT of the abdomen and pelvis September 22, 2019. TECHNIQUE: Axial images of the abdomen and pelvis were obtained without IV contrast. Images were revi ewed in the axial, sagittal, and coronal planes. Automated exposure control was utilized for the veronica dy. A dose lowering technique was utilized adhering to the principles of ALARA. FINDINGS: Imaged portions of the lower chest demonstrate bilateral lower lobe opacities consistent wi th atelectasis. No pneumatosis, free air or portal venous gas is present. Evaluation of the abdomen a nd pelvis is suboptimal on this unenhanced examination. The liver, spleen, adrenal glands, kidneys an d pancreas are unremarkable. There is no biliary or pancreatic ductal dilatation. The appendix is terrance gically absent. Hemoperitoneum within the abdomen and pelvis has moderately diminished since CT of 2018. Trace upper abdominal hemorrhage is noted. Small to moderate amount of hemorrhage wi thin the right lower quadrant and pelvis is noted. This has decreased since prior CT. Postoperative f indings within the anterior abdominal wall are again noted. There is no hydronephrosis. No pneumatosi s, free air or portal venous gas is present. No suspicious osseous lesions are noted. IMPRESSION: Moderate decrease in hemoperitoneum within the abdomen and pelvis since CT of September 22, 2019. Smal l to moderate amount of residual hemorrhage within the right lower quadrant and pelvis. ACT 112: Negative or not required by law. Electronically signed by: Saturnino Patterson M.D. 09/24/2019 4:13 PM
--- NOTE | 2019-09-24 21:13 | Surgery Progress Note ---
Date of Service pt is doing fine, no abdominal pain, no dizziness, September 24, 2019 Assessment & Plan (1) Appendicitis, acute, with generalized peritonitis: POD # 2 s/p laparoscopic appendectomy - afebrile, no leukocytosis - hemoperitoneum, hemodynamically stable, H&H stable 10.0 this am - pressure dressing on LLQ incision - currently holding Plavix on 81 mg of aspirin Plan: Will continue close monitoring as he is hemodynamically stable and H&H stable Given the plavix has only been held for 1 day, there is risk of new or further bleeding intraoperatively. Will continue clear liquids Continue current medical management, appreciate their assistance Cardiology okay to hold Plavix in setting of hemoperitoneum, continue aspirin if does well and if continues to be stable would recommend resuming Plavix as soon as possible. Continue pain management as needed encourage ambulation and incentive spirometry SCDs for dvt prophylaxis continue pressure dressing 09/24/2019 11:52AM, DR. [place] base on pt has no symptoms, pt feels better, will repeat H/H in am, D/W possible RBC transfusion if H<8, pt and his son agree with it. possible surgery if pt is getting worse, they agree with it, possible plavix is still working, may need a couple of days more to stop plavix working, I answered all questions. will F/U 09/24/2019 9:13PM stable, repeat H/H in am, will F/U (2) Hemoperitoneum: plan as above Dr. Delgado has seen and examined pt, agrees with above. Supervising Physician Co-Signing Physician Notes Patient is seen and examined at bedside. He feels a lot better today. Had bowel movement. Abdominal pain is controlled. Denies any chest pain, shortness of breath, dizziness, nausea, vomiting today. Hemoglobin slightly dropped likely dilutional due to IV fluids. Renal function back to baseline after IV fluids. On exam patient is moderately built and nourished, no apparent distress, normocephalic atraumatic, lungs are clear to auscultation, S1-S2, no murmur, abdomen soft, mildly distended, mild tenderness, surgical site in dressing, diminished bowel sounds, no pedal edema, grossly nonfocal neurological status. Continue to hold Plavix for now. Blood cultures show no growth. Blood pressure improved today. Continue IV Zosyn empirically. Wound care as per surgery team. Hemodynamically stable today. I personally reviewed the record. Patient is interviewed and examined at bedside. Patient's care is coordinated with Korina Prado PA-C. Please refer to the documentation above for details of patient's presentation and for discussion of other issues. Subjective Patient seen and examined in room 230-1. Follow up POD #2 Laparoscopic appendectomy. He is lying in bed. Nursing offers no complaints overnight. Moved his bowels. Continues to have Bar cath in place. Complains of abdominal pain specifically right lower quadrant radiating to right upper quadrant and right shoulder. Abdomen significantly distended. Pain worse with movement and deep breathing. Denies fever, chills, sweats dizziness, chest pain, shortness of breath, palpitations. Pt remains NPO. Has abdominal dressing in place. Per nursing significant serosanguineous drainage yesterday. Review of Systems Constitutional: + anorexia; no fever, no chills, no malaise and no weakness Gastrointestinal: + abdominal pain and + nausea; no vomiting and no change in bowel habits Physical Exam Constitutional: WD/WN, vitals as above well developed and well nourished Neck: trachea midline, no thyromegaly Respiratory: normal respiratory effort, lungs clear to auscultation normal respiratory effort Cardiovascular: RRR, no murmur, no edema Skin: no rashes, warm and dry Neurologic: awake Psychiatric: Orientation: alert and oriented x 3 Results & Data Vital Signs (Past 12 Hours) Vital Signs Temp Pulse Pulse Resp BP Pulse Ox 09/24/19 20:01 154/80 H 09/24/19 19:28 36.8 C 84 18 170/87 H 93 09/24/19 15:16 87 09/24/19 14:58 36.7 C 73 18 148/78 H 95 09/24/19 11:51 36.4 C L 81 20 144/73 H 94
[2019-09-24 22:27] LABS: Hematocrit (blood only) 30.7 % (42-52); Hemoglobin 10.1 g/dL (14.0-18.0)
[2019-09-25] MEDS ORDERED: COUGH DROP (SUGAR FREE) LOZ 24 LOZ/1 BOX BUCCAL ONE (02:26)
[2019-09-25] MEDS ORDERED: COUGH DROP (SUGAR FREE) LOZ 24 LOZ/1 BOX BUCCAL PRN (03:13)
[2019-09-25 04:36] LABS: Hematocrit (blood only) 28.5 % (42-52); Hemoglobin 9.4 g/dL (14.0-18.0)
[2019-09-25 04:58] LABS: BUN Creatinine Ratio 8.9 (10-20); Calcium 9.2 mg/dl (8.5-10.1); Creatinine Clr Calc Pharmacy 123.1 ml/min; Est GFR (African American) 117.8; Est GFR (Non-African American) 101.6; Potassium 3.7 mmol/L (3.5-5.1)
[2019-09-25] MEDS: lisinopriL 5 MG TAB PO SCH (08:45)
[2019-09-25] MEDS: ASPIRIN 81 MG ECTAB PO SCH (08:45)
[2019-09-25] MEDS: METOPROLOL TARTRATE 25 MG TAB PO SCH (08:45)
[2019-09-25] MEDS: ATORVASTATIN 40 MG TAB PO SCH (08:45)
[2019-09-25] MEDS: LACTATED RINGER'S 1,000 ML IV SCH (08:46)
[2019-09-25] MEDS: FAMOTIDINE 20 MG in SYRINGE 3 ML IV SCH (08:49)
--- NOTE | 2019-09-25 10:20 | Surgery Progress Note ---
Date of Service September 25, 2019 Assessment & Plan (1) Appendicitis, acute, with generalized peritonitis: POD # 4 s/p laparoscopic appendectomy - afebrile - hemoperitoneum, hemodynamically stable, H&H stable 9.4 this am (10.1 last evening) - ecchymosis of left lower abdomen - currently holding Plavix on 81 mg of aspirin - Repeat CT scan of abd/pelvic on 09/24 showed improvement of hemoperitoneum Plan: Will continue close monitoring as he is hemodynamically stable and H&H stable continue low fiber heart healthy diet Discontinue IV fluids Cardiology okay to hold Plavix in setting of hemoperitoneum, continue aspirin. Continue pain management as needed encourage ambulation and incentive spirometry SCDs for dvt prophylaxis may remove pressure dressing and apply small dressings to incision sites. okay from surgical standpoint for transfer out of telemetry will see if okay by hospitalist team (2) Hemoperitoneum: H&H stable repeat CT scan of abd/pelvis on 09/24 showed decreased hemoperitoneum plan as above Dr. Delgado has seen and examined pt, agrees with above. Subjective son present at baseline, helps with communication to and from patient no pain tolerating diet via nurse, no n/v bruising of left lower abdomen urinating without difficulty Physical Exam Constitutional: WD/WN, vitals as above no acute distress Gastrointestinal (Abdomen): Inspection/Auscultation: abdomen normal to inspection; abdomen not distended Percussion/Palpation: abdomen soft; abdomen nontender, no guarding and abdomen not rigid Skin: no rashes, warm and dry ecchymosis of the left lower abdomen Psychiatric: A+Ox3, euthymic affect Results & Data Vital Signs (Past 12 Hours) Vital Signs Temp Pulse Pulse Resp BP Pulse Ox 09/25/19 07:04 36.6 C 76 18 165/83 H 96 09/25/19 03:22 36.6 C 74 18 151/77 H 96 09/24/19 23:19 36.8 C 77 19 167/83 H 95 09/24/19 23:00 80 Laboratory Results 09/25/19 09/25/19 09/24/19 Range/Units 04:25 04:25 22:09 Hgb 9.4 L 10.1 L (14.0-18.0) g/dL Hct 28.5 L 30.7 L (42-52) % Sodium 138 (136-145) mmol/L Potassium 3.7 (3.5-5.1) mmol/L Chloride 108 H (98-107) mmol/L Carbon Dioxide 26 (21-32) mmol/L Anion Gap 4.0 (3-11) BUN 6 L (7-18) mg/dl Creatinine 0.68 (0.6-1.4) mg/dl Est Cr Clr Drug Dosing 123.1 ml/min Est GFR ( Amer) 117.8 Est GFR (Non-Af Amer) 101.6 BUN/Creatinine Ratio 8.9 L (10-20) Glucose 85 (70-99) mg/dl Calcium 9.2 (8.5-10.1) mg/dl
--- NOTE | 2019-09-25 11:28 | Hospitalist Progress Note ---
Date of Service September 25, 2019 Assessment & Plan (1) S/P laparoscopic appendectomy: Laparoscopic appendectomy for acute appendicitis by Dr. Johnson on 09/21/19 Complicated by postop hemoperitoneum as discussed below. Pain/wound management per surgery Management by primary surgical team Tolerating low-fat diet Discontinued antibiotics yesterday. (2) Hemoperitoneum: (3) Postoperative hypotension: (4) Postoperative anemia: Postop hypotension and anemia from acute hemoperitoneum In the setting of dual antiplatelet therapy for recent stents on 07/24/2019 for multivessel CAD Patient is currently hemodynamically stable. Repeat CT abdomen pelvis done yesterday showed moderate decrease in hemoperitoneum Hemoglobin this morning is 9.4. Continue to hold Plavix for now and follow cardiology recommendations (5) CAD (coronary artery disease): Continue asa, statin, metoprolol Received lisinopril this AM. Monitor BP. Hold if hypotensive Plavix on hold for now given hemoperitoneum Cardiology on board (6) JC (acute kidney injury): Resolved Reported to have resolved with luna insertion likely in setting of obstructive uropathy Continue to monitor (7) DVT prophylaxis: SCD/TEDS We will follow the patient with you during their hospital stay. You can reach me or a member of the [facility] Hospitalist Team 23/04 via pager @ [phone]. Subjective Patient seen and examined this morning. Denied any abdominal pain, nausea, vomiting. Reports he is tolerating diet well and having regular bowel movement. Patient evaluation done with a preparation plant supervisor as patient is Svit[place] speaking Review of Systems Review of Systems: All systems reviewed and unremarkable except for mentioned above. Physical Exam Physical Exam: General: No acute distress and well nourished Eyes: PERRL, conjunctivae normal, mild pallor, anicteric sclerae, EOM intact bilaterally ENMT: External ear and nose normal, oropharynx normal Neck: Normal visual inspection, no tracheal deviation, no swelling noted Respiratory: Normal respiratory effort, no respiratory distress, lungs clear to auscultation, no crackles and no wheezes Cardiovascular: Pulse is RRR.S1 S2, no murmurs, no pedal edema Chest (Breasts): Chest: normal inspection of chest Gastrointestinal (Abdomen): Abdomen is mildly distended, covered in dressing, left lower abdominal quadrant ecchymosis, soft, no tenderness to palpation, no guarding, no palpable hepatosplenomegaly, normal bowel sounds Musculoskeletal: No cyanosis or clubbing, all extremities motor strength 5/5 Neurologic: Alert and oriented x 3, No focal weakness, sensation grossly intact Psychiatric: Euthymic affect, no depressed affect Results & Data Vital Signs (Past 12 Hours) Vital Signs Temp Pulse Resp BP Pulse Ox 09/25/19 07:04 36.6 C 76 18 165/83 H 96 09/25/19 03:22 36.6 C 74 18 151/77 H 96 Laboratory Results Abnormal lab results 09/24/19 09/25/19 09/25/19 Range/Units 22:09 04:25 04:25 Hgb 10.1 L 9.4 L (14.0-18.0) g/dL Hct 30.7 L 28.5 L (42-52) % Chloride 108 H (98-107) mmol/L BUN 6 L (7-18) mg/dl BUN/Creatinine Ratio 8.9 L (10-20) Diagnostic Findings CT Abd/Pelvis 09/24/19 Moderate decrease in hemoperitoneum within the abdomen and pelvis since CT of September 22, 2019. Small to moderate amount of residual hemorrhage within the right lower quadrant and pelvis (1) CAD (coronary artery disease) Associated angina: angina presence unspecified Coronary Disease-Associated Artery/Lesion type: unspecified vessel or lesion type [place] vs. transplanted heart: [place] heart Qualified Code(s): I25.10 - Atherosclerotic heart disease of [place] coronary artery without angina pectoris
[2019-09-25] MEDS ORDERED: ALUMINUM/MAGNESIUM/SIMETH (MAALOX MAX) 30 ML UDC PO PRN (19:29)
[2019-09-25] MEDS: FAMOTIDINE 20 MG TAB PO SCH (21:13)
[2019-09-25 21:38] LABS: Hematocrit (blood only) 31.5 % (42-52); Hemoglobin 10.3 g/dL (14.0-18.0)
[2019-09-26 06:17] LABS: Hematocrit (blood only) 30.7 % (42-52); Hemoglobin 10.2 g/dL (14.0-18.0)
--- NOTE | 2019-09-26 08:47 | Surgery Progress Note ---
Date of Service September 26, 2019 Assessment & Plan (1) Appendicitis, acute, with generalized peritonitis: POD # 5 s/p laparoscopic appendectomy - afebrile - hemoperitoneum, hemodynamically stable, H&H stable 10.2 this am (10.3 last evening) - ecchymosis of left lower abdomen, stable - currently holding Plavix on 81 mg of aspirin - Repeat CT scan of abd/pelvic on 09/24 showed improvement of hemoperitoneum Plan: Patient doing well, hemodynamically stable, and hemoglobin has been stable now for two days. May possible be able to be discharged today. Will have to talk with son, as well as medical team and cardiology Continue heart healthy diet for now Will need to determine resuming plavix (2) Hemoperitoneum: H&H stable repeat CT scan of abd/pelvis on 09/24 showed decreased hemoperitoneum plan as above Dr. Delgado has seen and examined pt, agrees with above. Subjective patient sitting up in bed, smiling, looking better speaks little greenlandic but says no pain in chest or abdomen, feels gas in abdomen Son not present at bedside, coming soon per patient Physical Exam Constitutional: WD/WN, vitals as above no acute distress Respiratory: normal respiratory effort; no respiratory distress Gastrointestinal (Abdomen): Inspection/Auscultation: abdomen normal to inspection; abdomen not distended Percussion/Palpation: + abdomen tender (right side) and abdomen soft; no guarding and abdomen not rigid Skin: no rashes, warm and dry ecchymosis of left lower abdomen, stable Psychiatric: A+Ox3, euthymic affect Results & Data Vital Signs (Past 12 Hours) Vital Signs Temp Pulse Pulse Resp BP BP Pulse Ox 09/26/19 07:36 36.6 C 80 16 161/93 H 96 09/26/19 03:32 154/89 H 09/25/19 23:44 163/86 H 09/25/19 23:05 36.8 C 73 16 163/78 H 98 09/25/19 21:05 159/93 H Laboratory Results 09/26/19 09/25/19 Range/Units 05:33 21:30 Hgb 10.2 L 10.3 L (14.0-18.0) g/dL Hct 30.7 L 31.5 L (42-52) %
[2019-09-26] MEDS: lisinopriL 5 MG TAB PO SCH (08:48)
[2019-09-26] MEDS: FAMOTIDINE 20 MG TAB PO SCH ×2 (08:49→20:55)
[2019-09-26] MEDS: METOPROLOL TARTRATE 25 MG TAB PO SCH (08:49)
[2019-09-26] MEDS: ATORVASTATIN 40 MG TAB PO SCH (08:49)
[2019-09-26] MEDS: ASPIRIN 81 MG ECTAB PO SCH (08:49)
[2019-09-26] MEDS: CLOPIDOGREL BISULFATE 75 MG TAB PO SCH (09:29)
--- NOTE | 2019-09-26 09:29 | Hospitalist Progress Note ---
Date of Service September 26, 2019 Assessment & Plan (1) S/P laparoscopic appendectomy: Laparoscopic appendectomy for acute appendicitis by Dr. Johnson on 09/21/19 Complicated by postop hemoperitoneum as discussed below. Pain/wound management per surgery Management by primary surgical team Tolerating low-fat diet (2) Hemoperitoneum: (3) Postoperative hypotension: (4) Postoperative anemia: Postop hypotension and anemia from acute hemoperitoneum In the setting of dual antiplatelet therapy for recent stents on 07/24/2019 for multivessel CAD Hemodynamically stable. Hemoglobin has been stable in the 10s since yesterday. Resume Plavix today monitor If stable can be discharged Follow-up with his search manager outpatient (5) CAD (coronary artery disease): Continue asa, statin, metoprolol, lisinopril Resume Plavix today Follow-up with search manager outpatient (6) JC (acute kidney injury): Resolved Reported to have resolved with luna insertion likely in setting of obstructive uropathy Continue to monitor (7) DVT prophylaxis: SCD/TEDS We will follow the patient with you during their hospital stay. You can reach me or a [facility] via pager @ [phone]. Subjective Has been tolerating diet. Denies any abdominal pain. Reports feeling "gassy' Review of Systems Review of Systems: All systems reviewed and unremarkable except for mentioned above. Physical Exam Physical Exam: General: No acute distress and well nourished Eyes: PERRL, conjunctivae normal, mild pallor, anicteric sclerae, EOM intact bilaterally ENMT: External ear and nose normal, oropharynx normal Neck: Normal visual inspection, no tracheal deviation, no swelling noted Respiratory: Normal respiratory effort, no respiratory distress, lungs clear to auscultation, no crackles and no wheezes Cardiovascular: Pulse is RRR.S1 S2, no murmurs, no pedal edema Gastrointestinal (Abdomen): Abdomen is mildly distended, covered in dressing, left lower abdominal quadrant ecchymosis, soft, no tenderness to palpation, no guarding, no palpable hepatosplenomegaly, normal bowel sounds Neurologic: Alert and oriented x 3, No focal weakness, sensation grossly intact Psychiatric: Euthymic affect, no depressed affect Results & Data Vital Signs (Past 12 Hours) Vital Signs Temp Pulse Pulse Resp BP BP Pulse Ox 09/26/19 07:36 36.6 C 80 16 161/93 H 96 09/26/19 03:32 154/89 H 09/25/19 23:44 163/86 H 09/25/19 23:05 36.8 C 73 16 163/78 H 98 Laboratory Results Abnormal lab results 09/25/19 09/26/19 Range/Units 21:30 05:33 Hgb 10.3 L 10.2 L (14.0-18.0) g/dL Hct 31.5 L 30.7 L (42-52) % (1) CAD (coronary artery disease) Associated angina: angina presence unspecified Coronary Disease-Associated Artery/Lesion type: unspecified vessel or lesion type [place] vs. transplanted heart: [place] heart Qualified Code(s): I25.10 - Atherosclerotic heart disease of [place] coronary artery without angina pectoris
[2019-09-26] MEDS ORDERED: CLOPIDOGREL BISULFATE 75 MG TAB PO SCH (09:30)
[2019-09-27 05:38] LABS: Hematocrit (blood only) 32.8 % (42-52); Hemoglobin 11.2 g/dL (14.0-18.0)
--- NOTE | 2019-09-27 08:23 | Surgery Progress Note ---
Date of Service September 27, 2019 Assessment & Plan (1) Hemoperitoneum: s/p lap appy H&H stable seen by Dr. Dotson ok for discharge Subjective regular diet, no new issues Physical Exam Gastrointestinal (Abdomen): Inspection/Auscultation: + abdominal wall ecchymosis Percussion/Palpation: abdomen soft Results & Data Vital Signs (Past 12 Hours) Vital Signs Temp Pulse Pulse Resp BP Pulse Ox 09/27/19 07:21 36.5 C 69 16 150/80 H 97 09/26/19 23:05 36.7 C 81 16 145/77 H 92 PG Care Time/CCT Total # of Minutes Spent Total Time Spent with Patient: Total time spent is greater than 50% in coordination of care (as documented) at patient's floor/unit and/or counseling patient:
[2019-09-27] MEDS: lisinopriL 5 MG TAB PO SCH (08:54)
[2019-09-27] MEDS: CLOPIDOGREL BISULFATE 75 MG TAB PO SCH (08:54)
[2019-09-27] MEDS: FAMOTIDINE 20 MG TAB PO SCH (08:54)
[2019-09-27] MEDS: METOPROLOL TARTRATE 25 MG TAB PO SCH (08:54)
[2019-09-27] MEDS: ASPIRIN 81 MG ECTAB PO SCH (08:54)
[2019-09-27] MEDS: ATORVASTATIN 40 MG TAB PO SCH (08:54)
--- NOTE | 2019-10-03 12:10 | Discharge Summary ---
Date of Service October 03, 2019 Admission HPI Per Admitting Provider This is a 64 year old male that is presented to the ED with complaints of an episode of constant diffuse abdominal pain that started around 1400 today. He has had nausea but no vomiting. He denies any urinary symptoms, changes in his bowel movements or trauma to the area. He denies any history of an appendectomy or a cholecystectomy. A CT scan shows acute appendicitis. Principal Diagnosis Acute appendicitis Discharge Data Allergies Allergy/AdvReac Type Severity Reaction Status Date / Time No Known Allergies Allergy Unverified 09/21/19 20:01 Consultations 09/22/19 11:32 Consult Hospitalist Routine 09/22/19 14:18 Consult Cardiology Routine Procedures Performed Operation Date: 09/21/19 21:45 Actual Procedures p Laparoscopic Appendectomy(Not Applicable) - Natan Johnson MD Operation Date: 09/22/19 11:40 <No data on this case meets the specified criteria> Ordered Studies 09/21/19 18:46 CT abd pelvis IV con only Stat 09/22/19 12:19 CT abd pelvis wo con Urgent CT chest wo con Urgent 09/24/19 14:52 CT abd pelvis wo con Urgent Hospital Course (1) Appendicitis, acute, with generalized peritonitis: Patient was taken to operating room for laparoscopic appendectomy by Dr. Johnson. Patient found to have acute appendicitis without perforation or abscess. Patient tolerated procedure well and was transferred to recovery and then to telemetry floor for post operative care. POD # 1 patient developed hypotension with dizziness when ambulating. BP was 94/58. EKG ordered which showed ST elevation however had recent myocardial infarction with stent placement in July currently on Plavix and aspirin. Hospitalist consulted for comanagement and home lisinopril and metoprolol held given hypotension. Stat cbc showed Hemoglobin at 11.8 preop 15. Gave 1 liter of NS bolus. Bp improved to 122/80. CT scan of abdomen and pelvis ordered stat given drop in hemoglobin and on plavix and aspirin. Prior to going down to CT scan patient had bowel movement and then had bleeding from LLQ incision. Steady about of dark blood draining from incision. Pressure dressing applied and patient taken to CT scan. Changed to NPO. Ct scan showed moderate hemoperitoneum within the abdomen and pelvis. The densest clot is within the appendectomy bed which likely represents the source for hemorrhage. Patient hemodynamically stable. Plavix held. repeat hemoglobin ordered for 3 pm which was 11.0 therefore H&H repeated every 6 hours and close monitoring. POD # 2 hemodynamically stable, H&H stable around 10. Diet advanced to clear liquids. POD # 3 hemodynamically stable, hemoglobin dropped to 8.6 however repeat was then 10.1. POD # 4 hemodynamically stable, hemoglobin stable around 9.4-10. Diet advanced as tolerated. Repeat CT scan of abdomen and pelvis showed decreased hemoperitoneum. POD # 5 hemodynamically stable, Hemoglobin 10.2, tolerating low fiber diet. No pain. Doing well. Plavix was resumed and close monitoring for one more day advised with repeat hemoglobin in morning. POD #6, hemodynamically stable, hemoglobin 11.2. Patient discharged home on POD # 6 on oral plavix and aspirin. Advised to closely follow up with PCP, academic manager Dr. Loera, and Dr. Johnson in 1-2 weeks. (2) Hemoperitoneum: hospital course as above Total Time Total Time Spent Total Time Spent (In Minutes): 30 Total Time Includes: Examination of the Patient, Discharge Planning, Medication Reconciliation and Communication With Other Providers Discharge Plan Discharge Items Patient Disposition: Home - Self-Care Reason For Visit: APPENDICITIS Discharge Diagnosis: Acute appendicitis Post operative intra-abdominal bleeding Activity: Per Instructions section Non-emergency contact: Surgeon Call non-emergency contact if: you have any medication questions, your pain is not controlled, your pain is worsening, your pain is concerning for you, you have a fever, your temperature is above 101, your wound has increased redness, your wound has increased drainage and your wound pain has increased Follow-up/Referrals: Kyle Loera MD [Physician] - (You should follow-up with Dr. Loera given recent heart stenting and Plavix therapy. Call their office to set up follow-up if you do not already have one.) Natan Johnson MD [Physician] - (Follow-up in surgical office in 1 week from discharge. Please call office number above to schedule an appointment.) Kerline Babin MD [Primary Care Provider] - Diet: Heart Healthy Addtl Attending Provider Instructions: Post-Surgical ~Discharge Instructions Activity Recommendations: - lifting limitation: (20 pounds for 3-4 weeks), - exercise/sex/sports limit: (nonstrenuous for 2 weeks), - driving or machine use limit: (none for 1 week), - Shower/bathe limit: (may shower) Diet: - Resume previous diet SPECIAL CARE INSTRUCTIONS: - May shower. Let water run over area and pat dry. - Leave steri strips on for one week and then remove. - Call the surgeon's office with any questions or concerns - - (ex. temperature higher than 101 degrees F, excessive bleeding or pain). MEDICATIONS: - Resume previous medications unless instructed otherwise by your surgeon. - You can take extra strength Tylenol as needed for mild pain. - 650 mg every 6 hours as needed for mild pain FOLLOW UP VISIT: - If not already scheduled, please call the office to schedule a 1 week follow- up appointment. Office number If you develop dizziness, weakness, low blood pressure, increasing abdominal pain/bloating please go to emergency department for evaluation. Pending Studies at Discharge: No Stand-Alone Forms: Call Back Authorization, [facility], Smoking Cessation Medications and DC Order Prescriptions: Continued clopidogrel 75 mg Tablet 75 mg PO QAM 30 Days Qty: 30 RF: 6 lisinopril [Zestril] 5 mg Tablet 5 mg PO QAM 30 Days Qty: 30 RF: 6 metoprolol tartrate 25 mg Tablet 25 mg PO DAILY 30 Days Qty: 30 RF: 6 atorvastatin 80 mg tablet 80 mg PO QAM 30 Days Qty: 30 RF: 6 aspirin [Ecotrin Low Strength] 81 mg Tablet,Delayed Release (Dr/Ec) 81 mg PO QAM 30 Days Qty: 30 RF: 6 Discharge Orders: Discharge Order (Routine); Ordered 09/27/19 Ordered By: Kamron Krishnamurthy Admission Data Admit Date/Time: 09/23/19 11:00 Attending Provider: Natan Johnson Admit Provider: Natan Johnson Primary Care Provider: Kerline Babin Other Providers: Francia Barrera ; Orlin Salcido ; Kelli Cortes ; Carmina Tsai ; Niki Gibbons ; Kerline Babin ; Faviola Gracia ; Caesar Quinn ; Channing Leiva ; Thompson Coto ; Lisa Christian ; Cat Bateman ; Kay Zayas ; Paul Richard ; Basilio Patel ; Julisa Nash ; Russ Collins ; Korina Prado ; Basilio Santamaria ; Tamara Marshall ; Jose Martin Fuentes ; Rebeca Ho I. ; Edison Preston ; Cristopher Quiñonez ; Kyle Loera Other Interventions: Discharge Summary Assessment (RN) Last Done: 09/27/19 09:37 DC Date/Time DO NOT enter until pt leaves facility: 09/27/19 10:26
== END 2019-09-27 10:26 | disposition home or self-care (01) | DRG 341 ==
LOC: ED 18:26 → 2S 21:17 → OR 21:17 → 3W 09-25 13:31

== ENCOUNTER 2019-11-14 03:47 | Observation (INO) ==
[2019-11-14] MEDS ORDERED: MoRPHine SULFATE 4 MG/ML 1 ML CARP\\VIAL IV STA ×2 (04:07→04:58)
[2019-11-14] MEDS ORDERED: ONDANSETRON 4 MG OD TAB PO STA (04:07)
[2019-11-14] MEDS ORDERED: SODIUM CHLORIDE 0.9% 500 ML IV SCH (04:15)
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
[2019-11-14 04:18] LABS: Basophils # (auto) 0.02 K/uL (0-0.2); Basophils % (auto) 0.3 %; Eosinophils % (auto) 1.7 %; Hemoglobin 15.5 g/dL (14.0-18.0); Lymphocytes # (auto) 1.55 K/uL (1.2-3.4); Lymphocytes % (auto) 26.2 %; Mean Corpuscular Hemoglobin 28.9 pg (25-34); Mean Corpuscular Volume 87.5 fL (80-100); Mean Platelet Volume 10.6 fL (7.4-10.4); Monocytes # (auto) 0.46 K/uL (0.11-0.59); Monocytes % (auto) 7.8 %; Neutrophils # (auto) 3.78 K/uL (1.4-6.5); Platelet Count 182 K/uL (130-400); RDW Coefficient of Variation 14.4 % (11.5-14.5); RDW Standard Deviation 45.9 fL (36.4-46.3); Red Blood Count 5.37 M/uL (4.7-6.1); White Blood Count 5.91 K/uL (4.8-10.8)
[2019-11-14 04:28] LABS: Appearance Urine Clear (Clear); Bilirubin Urine Negative (Negative); Blood Urine Negative (Negative); Color Urine Yellow; Glucose Urine UA Negative (Negative); Ketones Urine Negative (Negative); Leukocyte Esterase Urine Negative (Negative); Nitrite Urine Negative (Negative); Protein Urine Negative (Negative); Specific Gravity Urine 1.011 (1.000-1.030); Urobilinogen Urine Negative (Negative)
[2019-11-14 04:33] LABS: Albumin Level 4.3 gm/dl (3.4-5.0); Calcium 10.6 mg/dl (8.5-10.1); Creatinine Clr Calc Pharmacy 83.2 ml/min; Est GFR (African American) 107.5; Est GFR (Non-African American) 92.7; Potassium 4.1 mmol/L (3.5-5.1)
[2019-11-14 04:36] LABS: Albumin Globulin Ratio 0.9 (0.9-2); Bilirubin,Total 0.4 mg/dl (0.2-1); Globulin 4.6 gm/dl (2.5-4.0); Total Protein 8.9 gm/dl (6.4-8.2)
[2019-11-14] MEDS ORDERED: IOVERSOL 100ml IV PRN (04:58)
[2019-11-14] MEDS ORDERED: HYDROmorphone INJ 1 MG/ML SYRINGE IV STA (05:59)
[2019-11-14] MEDS ORDERED: CYCLOBENZAPRINE HCL 5 MG TAB PO STA (06:40)
[2019-11-14] MEDS ORDERED: KETOROLAC TROMETHAMINE 15 MG/ML VIAL IV ONE (06:40)
--- NOTE | 2019-11-14 06:40 | CT Scan Report ---
CT OF THE ABDOMEN AND PELVIS WITH CONTRAST CLINICAL HISTORY: right flank/side pain, recent appy w/ hemoperitoneum. COMPARISON STUDY: CT of the abdomen and pelvis September 20, 2019. TECHNIQUE: Following IV administration of 93 mL of Optiray-320, axial images of the abdomen and pelvi s were obtained from the lung bases to the proximal femurs. Images were reviewed in the axial, sagitt al, and coronal planes. IV contrast was administered without complication. Automated exposure contro l was utilized for the study. A dose lowering technique was utilized adhering to the principles of A MARLENE. CT DOSE: 461.39 mGy.cm FINDINGS: Lung bases are unremarkable. No pneumatosis, free air or portal venous gas is present. Ther e is no biliary or pancreatic ductal dilatation. The spleen, adrenal glands, kidneys and pancreas are unremarkable Global with exception of a suspected cyst within the upper pole of the right kidney. No hydronephrosis. The appendix is surgically absent. There is no evidence for a bowel obstruction. The re is no ascites. There is no lymphadenopathy. No hemoperitoneum is present. No suspicious osseous le sions are noted. IMPRESSION: 1. No acute process within the abdomen or pelvis. 2. Status post appendectomy. No fluid collection. No bowel obstruction. ACT 112: Negative or not required by law. Electronically signed by: Saturnino Patterson M.D. 11/14/2019 6:38 AM
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
[2019-11-14] MEDS ORDERED: IBUPROFEN 200 MG TAB PO PRN (08:50)
[2019-11-14] MEDS ORDERED: KETOROLAC TROMETHAMINE 15 MG/ML VIAL IV PRN (08:50)
[2019-11-14] MEDS ORDERED: TRAMADOL HCL 50 MG TABLET PO PRN (08:50)
[2019-11-14] MEDS ORDERED: PROMETHAZINE HCL 12.5 MG in SODIUM CHLORIDE 0.9% 50 ML IV PRN (08:50)
[2019-11-14] MEDS ORDERED: TIZANIDINE HCL 4 MG TABLET PO PRN (08:50)
[2019-11-14] MEDS ORDERED: ACETAMINOPHEN 325 MG TAB PO PRN (08:50)
[2019-11-14] MEDS ORDERED: SODIUM CHLORIDE 0.9% 1000ML 1,000 ML IV ONE (09:00)
[2019-11-14] MEDS: ATORVASTATIN 40 MG TAB PO SCH (09:45)
[2019-11-14] MEDS: ASPIRIN 81 MG ECTAB PO SCH (09:45)
[2019-11-14] MEDS: CLOPIDOGREL BISULFATE 75 MG TAB PO SCH (09:45)
[2019-11-14] MEDS: METOPROLOL TARTRATE 25 MG TAB PO SCH ×2 (09:45→20:56)
[2019-11-14] MEDS: lisinopriL 5 MG TAB PO SCH (09:45)
[2019-11-14] MEDS: ENOXAPARIN INJ 40 MG/0.4 ML SYR SQ SCH (12:18)
[2019-11-15 06:09] LABS: Basophils # (auto) 0.01 K/uL (0-0.2); Basophils % (auto) 0.2 %; Eosinophils # (auto) 0.18 K/uL (0-0.5); Eosinophils % (auto) 3.6 %; Hematocrit (blood only) 42.2 % (42-52); Hemoglobin 14.1 g/dL (14.0-18.0); Lymphocytes # (auto) 1.81 K/uL (1.2-3.4); Lymphocytes % (auto) 36.6 %; Mean Corpuscular Hemoglobin 28.6 pg (25-34); Mean Corpuscular Hgb Conc 33.4 g/dL (32-36); Mean Corpuscular Volume 85.6 fL (80-100); Mean Platelet Volume 10.6 fL (7.4-10.4); Monocytes % (auto) 10.1 %; Neutrophils # (auto) 2.45 K/uL (1.4-6.5); Neutrophils % (auto) 49.5 %; Platelet Count 156 K/uL (130-400); RDW Coefficient of Variation 14.3 % (11.5-14.5); RDW Standard Deviation 44.9 fL (36.4-46.3); Red Blood Count 4.93 M/uL (4.7-6.1); White Blood Count 4.95 K/uL (4.8-10.8)
[2019-11-15 06:39] LABS: BUN Creatinine Ratio 15.9 (10-20); Calcium 9.4 mg/dl (8.5-10.1); Creatinine Clr Calc Pharmacy 85.2 ml/min; Est GFR (African American) 108.5; Est GFR (Non-African American) 93.6; Potassium 4.3 mmol/L (3.5-5.1)
[2019-11-15] MEDS: ATORVASTATIN 40 MG TAB PO SCH (08:22)
[2019-11-15] MEDS: ASPIRIN 81 MG ECTAB PO SCH (08:22)
[2019-11-15] MEDS: METOPROLOL TARTRATE 25 MG TAB PO SCH ×2 (08:22→20:38)
[2019-11-15] MEDS: lisinopriL 5 MG TAB PO SCH (08:23)
[2019-11-15] MEDS: CLOPIDOGREL BISULFATE 75 MG TAB PO SCH (08:23)
[2019-11-15] MEDS: ENOXAPARIN INJ 40 MG/0.4 ML SYR SQ SCH (08:23)
--- NOTE | 2019-11-15 17:53 | Hospitalist Progress Note ---
Date of Service November 15, 2019 Assessment & Plan (1) Right flank pain: Presented with severe left flank / back pain. No trauma. Afebrile. WBC normal. UA negative. CT of abdomen & pelvis: FINDINGS: Lung bases are unremarkable. No pneumatosis, free air or portal venous gas is present. There is no biliary or pancreatic ductal dilatation. The spleen, adrenal glands, kidneys and pancreas are unremarkable Global with exception of a suspected cyst within the upper pole of the right kidney. No hydronephrosis. The appendix is surgically absent. There is no evidence for a bowel obstruction. There is no ascites. There is no lymphadenopathy. No hemoperitoneum is present. No suspicious osseous lesions are noted. IMPRESSION: 1. No acute process within the abdomen or pelvis. 2. Status post appendectomy. No fluid collection. No bowel obstruction. ACT 112: Negative or not required by law. Electronically signed by: Saturnino Patterson M.D. 11/14/2019 6:38 AM Apparent musculoskeletal pain. Received analgesics with improvement. Discharge on naproxen BID x 3 days + acetaminophen PRN. Apply heat PRN. Further imaging / consultation as necessary if symptoms persist or worsen. (2) CAD (coronary artery disease): No anginal symptoms. Continue usual Rx. (3) DVT prophylaxis: SQ enoxaparin. Ambulating. (4) Discharge planning issues: Discharge to home. Internal Medicine follow-up with Dr. Garrison. Admission and Anticipated Discharge Date Admission Date: November 14, 2019 Subjective Recheck for back pain. Patient seen in their room around 1630. Interviewed with assistance of civil design specialist service. Feels better. Right back pain improved, does not radiate. No problems with bowel or bladder function. Able to ambulate. No other concerns. Would like to go home. Physical Exam Constitutional: no acute distress Respiratory: no respiratory distress Auscultation: lungs clear to auscultation bilaterally Cardiovascular: Rate/Rhythm: regular rate and regular rhythm Vessels: no JVD Extremities: no calf tenderness and no edema Gastrointestinal (Abdomen): normal bowel sounds, soft, nontender, no hepatosplenomegaly Musculoskeletal: no spinal or paraspinal tenderness no back pain with straight leg raising bilaterally motor strength lower extremities intact Skin: no rashes, warm and dry Psychiatric: Orientation: alert and oriented x 3 Results & Data ([facility]) Vital Signs (Past 12 Hours) Vital Signs Temp Pulse Resp BP Pulse Ox 02/15/20 14:53 36.4 C L 62 18 132/78 96 11/15/19 07:38 36.4 C L 62 16 157/86 H 97 (1) CAD (coronary artery disease) Associated angina: angina presence unspecified Coronary Disease-Associated Artery/Lesion type: unspecified vessel or lesion type [place] vs. transplanted heart: [place] heart Qualified Code(s): I25.10 - Atherosclerotic heart disease of [place] coronary artery without angina pectoris
--- NOTE | 2019-11-16 09:15 | Discharge Summary ---
Date of Service November 16, 2019 Admission HPI Per Admitting Provider History obtained from patient, family, and records. Limited history from patient secondary to language barrier. Medical history significant for CAD status post stent, HTN, history HCV as per records. Recent confinement last month under general surgery service for acute appendicitis status post surgery. 2 days history of achy right flank pain symptoms going to the belly. No radiation to the leg. No incontinence. No numbness. No unusual exertion although patient stands a lot at work at a [employer] place. No chest pain, no S OB. No fever, no chills. No hematuria. No prior episodes in the past. Intractable discomfort at the ER. Principal Diagnosis right flank / back pain- probably musculoskeletal Discharge Data Allergies Allergy/AdvReac Type Severity Reaction Status Date / Time No Known Drug Allergies Allergy Unknown Verified 11/14/19 03:59 Consultations 11/14/19 05:59 ED Decision to Admit Stat Ordered Studies 11/14/19 04:07 CT abd pelvis IV con only Urgent Hospital Course (1) Right flank pain: Presented with severe left flank / back pain. No trauma. Afebrile. WBC normal. UA negative. CT of abdomen & pelvis: FINDINGS: Lung bases are unremarkable. No pneumatosis, free air or portal venous gas is present. There is no biliary or pancreatic ductal dilatation. The spleen, adrenal glands, kidneys and pancreas are unremarkable Global with exception of a suspected cyst within the upper pole of the right kidney. No hydronephrosis. The appendix is surgically absent. There is no evidence for a bowel obstruction. There is no ascites. There is no lymphadenopathy. No hemoperitoneum is present. No suspicious osseous lesions are noted. IMPRESSION: 1. No acute process within the abdomen or pelvis. 2. Status post appendectomy. No fluid collection. No bowel obstruction. ACT 112: Negative or not required by law. Electronically signed by: Saturnino Patterson M.D. 11/14/2019 6:38 AM Apparent musculoskeletal pain. Received analgesics with improvement. Discharge on naproxen BID x 3 days + acetaminophen PRN. Apply heat PRN. Further imaging / consultation as necessary if symptoms persist or worsen. (2) CAD (coronary artery disease): No anginal symptoms. Continue usual Rx. (3) DVT prophylaxis: SQ enoxaparin. Ambulating. (4) Discharge planning issues: Discharged to home. Internal Medicine follow-up with Dr. Garrison. Total Time Total Time Spent Total Time Spent (In Minutes): 30 Discharge Plan Discharge Items Patient Disposition: Home - Self-Care Reason For Visit: back pain Discharge Diagnosis: back pain Condition on Discharge: Good Activity: As commented below Activity Comment: No heavy lifting until better. Non-emergency contact: Primary Care Provider and Hospitalist Call non-emergency contact if: you have any medication questions and your pain is worsening Follow-up/Referrals: Brandon Garrison MD [Physician] - 11/20/19 11:20 am (11/20/2019 11:20 AM Brandon Garrison MD) Diet: Heart Healthy Addtl Attending Provider Instructions: MEDICATION CHANGES: Extra Strength Tylenol 2 pills every 8 hours as needed for pain. Naproxen (Aleve) 1 pill twice a day with food for 3 days, then twice a day as needed. SUMMARY OF TEST RESULTS: CT scan did not show any signs of kidney stones or bowel problems. RECOMMENDATIONS FOR FOLLOW-UP: Consider referral to Physical Therapy if pain persists. OTHER INSTRUCTIONS: Heat pad may help. Seek medical attention if you have: * temperature above 101 * chest pain or trouble breathing * abdominal pain, nausea, vomiting * diarrhea, dark stools or bloody stools * worsening back pain * weakness in legs * problems with bladder or bowel function * any unanswered questions or concerns Call 911 if symptoms are severe. Please take good care of yourself. Call if you have any questions or problems. You can reach a [facility] hospitalist on duty at [facility] 24 hours a day by calling [phone]. My cell # is [phone]. Pending Studies at Discharge: No Stand-Alone Forms: My [facility], Smoking Cessation Medications and DC Order Prescriptions: New acetaminophen 500 mg tablet 1,000 mg PO Q8H PRN (Reason: fever or pain) Qty: 60 RF: 0 naproxen sodium [Aleve] 220 mg tablet 220 mg PO BID PRN (Reason: pain) Qty: 30 RF: 0 Continued clopidogrel 75 mg Tablet 75 mg PO QAM 30 Days Qty: 30 RF: 6 lisinopril [Zestril] 5 mg Tablet 5 mg PO QAM 30 Days Qty: 30 RF: 6 metoprolol tartrate 25 mg Tablet 25 mg PO DAILY 30 Days Qty: 30 RF: 6 atorvastatin 80 mg tablet 80 mg PO QAM 30 Days Qty: 30 RF: 6 aspirin [Ecotrin Low Strength] 81 mg Tablet,Delayed Release (Dr/Ec) 81 mg PO QAM 30 Days Qty: 30 RF: 6 Discharge Orders: Discharge Order (Routine); Ordered 11/15/19 Ordered By: Orlin Salcido Admission Data Admit Date/Time: 11/14/19 06:46 Attending Provider: Orlin Salcido Admit Provider: Caesar Quinn Primary Care Provider: Kerline Babin Other Providers: Caesar Quinn Other Interventions: Discharge Summary Assessment (RN) Last Done: 11/15/19 18:19 Infection Control - Act 87 Hepatitis C Last Done: 11/14/19 14:46 DC Date/Time DO NOT enter until pt leaves facility: 11/15/19 21:40
== END 2019-11-15 21:40 | disposition home or self-care (01) ==
LOC: ED 03:47 → 4W 03:47